=== PATIENT | female | born 1970 | race Caucasian/White ===

== ENCOUNTER 2019-09-02 18:33 | Emergency (ER) | payer OTHER ==
[2019-09-02] MEDS ORDERED: Sodium Chloride 0.9% 1,000 ML IV ONE (18:34)
[2019-09-02] MEDS ORDERED: Morphine 4 MG/ML Syringe IVPUSH ONE (18:35)
[2019-09-02] MEDS ORDERED: Ondansetron 4 MG/2 ML SDV IVPUSH ONE (18:35)
[2019-09-02 18:42] VITALS: BP 109/80
--- NOTE | 2019-09-02 18:51 | EDM.PDOC ---
ED HPI GENERAL MEDICAL PROBLEM - General Chief Complaint: Abdominal Pain Stated Complaint: ABDOMINAL PAIN Time Seen by Provider: 09/02/19 18:37 Source of Information: Reports: Patient History Limitations: Reports: No Limitations - History of Present Illness INITIAL COMMENTS - FREE TEXT/NARRATIVE: HISTORY AND PHYSICAL: History of present illness: Patient is a 49-year-old female who presents to the emergency room today with complaints of generalized abdominal pain, worse in the lower abdomen over the past one hour prior to arrival. Patient reports that she has a history of bowel torsion which required surgery while she was in [place] (2012). She states that these were due to multiple adhesions but she did not have any bowel removal. The pain she is experiencing at this time is similar to that instance. Patient denies any fever, chills, headache, change in vision, syncope or near syncope. Denies any chest pain, back pain, shortness of breath or cough. Denies any diarrhea, constipation or dysuria. Has not noted any blood in urine or stool. Patient had been eating and drinking appropriately. Review of systems: As per history of present illness and below otherwise all systems reviewed and negative. Past medical history: As per history of present illness and as reviewed below otherwise noncontributory. Surgical history: As per history of present illness and as reviewed below otherwise noncontributory. Social history: See social history for further information Family history: As per history of present illness and as reviewed below otherwise noncontributory. Physical exam: General: Well-developed and well-nourished 49-year-old female. Alert and oriented. Nontoxic appearing and mildly in distress due to abdominal pain. HEENT: Atraumatic, normocephalic, pupils equal and reactive bilaterally, negative for conjunctival pallor or scleral icterus, mucous membranes moist, TMs normal bilaterally, throat clear, neck supple, nontender, trachea midline. No drooling or trismus noted. No meningeal signs. No hot potato voice noted. Lungs: Clear to auscultation, breath sounds equal bilaterally, chest nontender. Heart: S1S2, regular rate and rhythm without overt murmur Abdomen: Soft, nondistended, tender in all 4 quadrants moreso in the lower abdomen. Negative for masses or hepatosplenomegaly. Negative for costovertebral tenderness. Pelvis: Stable nontender. Skin: Intact, warm, dry. No lesions or rashes noted. Extremities: Atraumatic, moves all extremities per self without difficulty or deficits, negative for cords or calf pain. Neurovascular unremarkable. Neuro: Awake, alert, oriented. Cranial nerves II through XII unremarkable. Cerebellum unremarkable. Motor and sensory unremarkable throughout. Exam nonfocal. Notes: All diagnostics are unremarkable. Findings were shared with the patient. We discussed signs and symptoms that would prompt her to return to the emergency room. Encouraged her to follow up with her primary care provider. Supportive care measures were reviewed and discussed. Voices understanding and is agreeable to plan of care. Denies any further questions or concerns at this time. Diagnostics: CBC, CMP, UA, lipase, CT abdomen and pelvis Therapeutics: IV fluid, Zofran, morphine Prescription: None Impression: Abdominal Pain Plan: 1. Dooly diet; advance as tolerated. Please use Tylenol and/or Ibuprofen as needed for pain and fever management. 2. Get plenty of Rest. Encourage fluids to prevent dehydration. 3. Please follow up with your primary care provider. Return to the ED as needed as discussed. Definitive disposition and diagnosis as appropriate pending reevaluation and review of above. 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 intestinal repair Female Surgical History: Reports: Section, Hysterectomy Oncologic Surgical History: Reports: Lumpectomy Social & Family History - Family History Family Medical History: Noncontributory - Tobacco Use Smoking Status *Q: Current Every Day Smoker Years of Tobacco use: 2 Packs/Tins Daily: 0.5 - Caffeine Use Caffeine Use: Reports: Coffee - Recreational Drug Use Recreational Drug Use: No ED ROS GENERAL - Review of Systems Review Of Systems: Comprehensive ROS is negative, except as noted in HPI. ED EXAM, GI/ABD - Physical Exam Exam: See Below (See dictation) Course - Vital Signs Last Recorded V/S: Last Vital Signs Temp 97.5 F 09/02/19 18:38 Pulse 115 H 09/02/19 18:38 Resp 20 09/02/19 18:38 BP 109/80 09/02/19 18:38 Pulse Ox 97 09/02/19 18:38 - Orders/Labs/Meds Labs: Laboratory Tests 09/02/19 09/02/19 09/02/19 Range/Units 18:40 18:40 18:40 WBC 9.78 (4.0-11.0) K/uL RBC 4.25 L (4.30-5.90) M/uL Hgb 14.3 (12.0-16.0) g/dL Hct 41.1 (36.0-46.0) % MCV 96.7 (80.0-98.0) fL MCH 33.6 H (27.0-32.0) pg MCHC 34.8 (31.0-37.0) g/dL RDW Std Deviation 48.8 (28.0-62.0) fl RDW Coeff of Sameer 14 (11.0-15.0) % Plt Count 328 (150-400) K/uL MPV 10.00 (7.40-12.00) fL Neut % (Auto) 63.8 (48.0-80.0) % Lymph % (Auto) 20.0 (16.0-40.0) % [place] % (Auto) 10.2 (0.0-15.0) % Eos % (Auto) 5.4 (0.0-7.0) % Baso % (Auto) 0.6 (0.0-1.5) % Neut # (Auto) 6.2 H (1.4-5.7) K/uL Lymph # (Auto) 2.0 (0.6-2.4) K/uL [place] # (Auto) 1.0 H (0.0-0.8) K/uL Eos # (Auto) 0.5 (0.0-0.7) K/uL Baso # (Auto) 0.1 (0.0-0.1) K/uL Nucleated RBC % 0.0 /100WBC Nucleated RBCs # 0 K/uL Sodium 136 (136-145) mmol/L Potassium 4.1 (3.5-5.1) mmol/L Chloride 99 (98-107) mmol/L Carbon Dioxide 27.3 (21.0-32.0) mmol/L BUN 10 (7.0-18.0) mg/dL Creatinine 1.4 H (0.6-1.0) mg/dL Est Cr Clr Drug Dosing 38.02 mL/min Estimated GFR (MDRD) 39.8 ml/min Glucose 94 (74-106) mg/dL Calcium 9.3 (8.5-10.1) mg/dL Total Bilirubin 0.2 (0.2-1.0) mg/dL AST 27 (15-37) IU/L ALT 34 (14-63) IU/L Alkaline Phosphatase 69 (46-116) U/L Total Protein 7.8 (6.4-8.2) g/dL Albumin 3.7 (3.4-5.0) g/dL Globulin 4.1 H (2.6-4.0) g/dL Albumin/Globulin Ratio 0.9 (0.9-1.6) Lipase 211 (73-393) U/L Urine Color Urine Appearance Urine pH (5.0-8.0) Ur Specific [place] (1.001-1.035) Urine Protein (NEGATIVE) mg/dL Urine Glucose (UA) (NEGATIVE) mg/dL Urine Ketones (NEGATIVE) mg/dL Urine Occult Blood (NEGATIVE) Urine Nitrite (NEGATIVE) Urine Bilirubin (NEGATIVE) Urine Urobilinogen (<2.0) EU/dL Ur Leukocyte Esterase (NEGATIVE) 09/02/19 Range/Units 19:40 WBC (4.0-11.0) K/uL RBC (4.30-5.90) M/uL Hgb (12.0-16.0) g/dL Hct (36.0-46.0) % MCV (80.0-98.0) fL MCH (27.0-32.0) pg MCHC (31.0-37.0) g/dL RDW Std Deviation (28.0-62.0) fl RDW Coeff of Sameer (11.0-15.0) % Plt Count (150-400) K/uL MPV (7.40-12.00) fL Neut % (Auto) (48.0-80.0) % Lymph % (Auto) (16.0-40.0) % [place] % (Auto) (0.0-15.0) % Eos % (Auto) (0.0-7.0) % Baso % (Auto) (0.0-1.5) % Neut # (Auto) (1.4-5.7) K/uL Lymph # (Auto) (0.6-2.4) K/uL [place] # (Auto) (0.0-0.8) K/uL Eos # (Auto) (0.0-0.7) K/uL Baso # (Auto) (0.0-0.1) K/uL Nucleated RBC % /100WBC Nucleated RBCs # K/uL Sodium (136-145) mmol/L Potassium (3.5-5.1) mmol/L Chloride (98-107) mmol/L Carbon Dioxide (21.0-32.0) mmol/L BUN (7.0-18.0) mg/dL Creatinine (0.6-1.0) mg/dL Est Cr Clr Drug Dosing mL/min Estimated GFR (MDRD) ml/min Glucose (74-106) mg/dL Calcium (8.5-10.1) mg/dL Total Bilirubin (0.2-1.0) mg/dL AST (15-37) IU/L ALT (14-63) IU/L Alkaline Phosphatase (46-116) U/L Total Protein (6.4-8.2) g/dL Albumin (3.4-5.0) g/dL Globulin (2.6-4.0) g/dL Albumin/Globulin Ratio (0.9-1.6) Lipase (73-393) U/L Urine Color YELLOW Urine Appearance CLEAR Urine pH 6.0 (5.0-8.0) Ur Specific [place] <= 1.005 (1.001-1.035) Urine Protein NEGATIVE (NEGATIVE) mg/dL Urine Glucose (UA) NEGATIVE (NEGATIVE) mg/dL Urine Ketones NEGATIVE (NEGATIVE) mg/dL Urine Occult Blood NEGATIVE (NEGATIVE) Urine Nitrite NEGATIVE (NEGATIVE) Urine Bilirubin NEGATIVE (NEGATIVE) Urine Urobilinogen 0.2 (<2.0) EU/dL Ur Leukocyte Esterase NEGATIVE (NEGATIVE) Meds: Medications Discontinued Medications Generic Name Dose Route Start Last Admin Trade Name Freq PRN Reason Stop Dose Admin Hydromorphone HCl 1 mg 09/02/19 19:17 09/02/19 19:26 Dilaudid IVPUSH 09/02/19 19:18 1 mg ONETIME ONE Administration Sodium Chloride 1,000 mls @ 999 mls/hr 09/02/19 18:34 09/02/19 18:44 Normal Saline IV 09/02/19 19:34 999 mls/hr STAT ONE Administration Morphine Sulfate 4 mg 09/02/19 18:35 09/02/19 18:45 Morphine IVPUSH 09/02/19 18:36 4 mg ONETIME ONE Administration Ondansetron HCl 4 mg 09/02/19 18:35 09/02/19 18:44 Zofran IVPUSH 09/02/19 18:36 4 mg ONETIME ONE Administration Departure - Departure Time of Disposition: 20:03 Disposition: Home, Self-Care 01 Clinical Impression: Abdominal pain - Discharge Information Instructions: Abdominal Pain, Adult, [id number] Referrals: PCP,Unknown [Primary Care Provider] - Forms: ED Department Discharge Additional Instructions: The following information is given to patients seen in the emergency department who are being discharged to home. This information is to outline your options for follow-up care. We provide all patients seen in our emergency department with a follow-up referral. The need for follow-up, as well as the timing and circumstances, are variable depending upon the specifics of your emergency department visit. If you don't have a primary care physician on staff, we will provide you with a referral. We always advise you to contact your personal physician following an emergency department visit to inform them of the circumstance of the visit and for follow-up with them and/or the need for any referrals to a consulting specialist. The emergency department will also refer you to a specialist when appropriate. This referral assures that you have the opportunity for follow-up care with a specialist. All of these measure are taken in an effort to provide you with optimal care, which includes your follow-up. Under all circumstances we always encourage you to contact your private physician who remains a resource for coordinating your care. When calling for follow-up care, please make the office aware that this follow-up is from your recent emergency room visit. If for any reason you are refused follow-up, please contact the [facility] Emergency Department at and asked to speak to the emergency department charge nurse. [facility] [address] [place] [id number] [address] 1. Dooly diet; advance as tolerated. Please use Tylenol and/or Ibuprofen as needed for pain and fever management. 2. Get plenty of Rest. Encourage fluids to prevent dehydration. 3. Please follow up with your primary care provider. Return to the ED as needed as discussed.
[2019-09-02 19:14] LABS: CARBON DIOXIDE,CO2 27.3 mmol/L (21.0-32.0); POTASSIUM,K 4.1 mmol/L (3.5-5.1)
[2019-09-02] MEDS ORDERED: HYDROmorphone 1 MG/ML Syringe IVPUSH ONE (19:17)
--- NOTE | 2019-09-02 19:56 | CT ---
INDICATION: Pain. TECHNIQUE: CT abdomen and pelvis performed without oral or IV contrast. COMPARISON: CT 06/05/2014. FINDINGS: Bilateral breast implants. Mild scoliosis. Hysterectomy. Minimal fluid and stranding about both kidneys is doing could suggest mild perinephric edema or inflammation of uncertain etiology and age. Clinical and laboratory correlation recommended. No renal or ureteral calculi. Small cyst or follicle in the right ovary. Urinary bladder is moderately distended. The distal stomach is not well-distended likely accounting for its wall being slightly prominent. Colonic diverticulosis. No evidence for diverticulitis. Appendix is not seen. Minimal scarring or edema and lateral pelvic wall bilaterally. Remainder negative. IMPRESSION: 1. No acute disease in abdomen or pelvis. 2. Nonspecific new very mild fluid and stranding about both kidneys could be related to perinephric edema or inflammation and can be correlated to clinical and laboratory evidence. 3. Hysterectomy. 4. Not mentioned above are a few air-fluid levels within the midline and left lower quadrant and pelvic small bowel loops which is very nonspecific. Other findings as above. Please note that all CT scans at this facility use dose modulation, iterative reconstruction, and/or weight-based dosing when appropriate to reduce radiation dose to as low as reasonably achievable. Dictated by Devon Arboleda MD @ Sep 02 2019 7:55PM Signed by Dr. Devon Arboleda @ Sep 02 2019 7:55PM
[2019-09-02 20:21] VITALS: PULSE 96
== END 2019-09-02 20:22 | disposition home or self-care (01) ==
LOC: MW.ED 18:33
DX: R10.30 Lower abdominal pain, unspecified (principal); F41.9 Anxiety disorder, unspecified; F03.90 Unspecified dementia, unspecified severity, without behavioral disturbance, psychotic disturbance, mood disturbance, and anxiety; F17.210 Nicotine dependence, cigarettes, uncomplicated; Z90.49 Acquired absence of other specified parts of digestive tract; Z88.5 Allergy status to narcotic agent; Z88.8 Allergy status to other drugs, medicaments and biological substances; Z79.899 Other long term (current) drug therapy
CPT/HCPCS: 36415; 74176; 80053; 81003; 83690; 85025; 96361; 96374; 96375; 99284; J1170; J2270; J2405; J7040

== ENCOUNTER 2019-09-17 10:59 | Day surgery (SDC) | payer OTHER ==
[~2019-09-17 10:59] MED LIST: Lactated Ringers 1,000 ML IV SCH; Lidocaine 2% 5 ML SDV ONE; Propofol 200 MG/20 ML SDV ONE
--- NOTE | 2019-09-17 11:52 | PCM.PREANE ---
Preanesthetic Assessment - Anesthesia/Transfusion/Family Hx Anesthesia History: Prior Anesthesia Without Reaction Family History of Anesthesia Reaction: No Transfusion History: No Prior Transfusion(s) - Review of Systems General: No Symptoms Pulmonary: No Symptoms Cardiovascular: No Symptoms Gastrointestinal: No Symptoms Neurological: No Symptoms Other: Reports: None - Physical Assessment NPO Status Date: 09/16/19 Height: 5 ft 2 in Weight: 82.554 kg ASA Class: 2 Mental Status: Alert & Oriented x3 Airway Class: Mallampati = 2 Dentition: Reports: Normal Dentition ROM/Head Extension: Full Lungs: Clear to Auscultation, Normal Respiratory Effort Cardiovascular: Regular Rate, Regular Rhythm - Allergies Allergies/Adverse Reactions: Allergies Allergy/AdvReac Type Severity Reaction Status Date / Time acetaminophen Allergy Vomiting Verified 09/13/19 12:23 [From Darvocet-N] codeine Allergy Vomiting Verified 09/13/19 12:23 propoxyphene napsylate Allergy Vomiting Verified 09/13/19 12:23 [From Darvocet-N] - Blood Blood Available: No - Anesthesia Plan Pre-Op Medication Ordered: None - Acknowledgements Anesthesia Type Planned: General Anesthesia Pt an Appropriate Candidate for the Planned Anesthesia: Yes Alternatives and Risks of Anesthesia Discussed w Pt/Guardian: Yes Pt/Guardian Understands and Agrees with Anesthesia Plan: Yes Additional Comments: PMH: htn, smoker PLAN: tiva PreAnesthesia Questionnaire - Past Health History Medical/Surgical History: Denies Medical/Surgical History HEENT History: Reports: Other (See Below) Other HEENT History: wears glasses Cardiovascular History: Reports: Hypertension Respiratory History: Reports: None Gastrointestinal History: Reports: GERD Genitourinary History: Reports: None 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: Musculoskeletal History: Reports: Fracture, Fibromyalgia Other Musculoskeletal History: hx fx bone in foot Neurological History: Reports: None Psychiatric History: Reports: Anxiety, Depression Endocrine/Metabolic History: Reports: Obesity/BMI 30+ Hematologic History: Reports: None Immunologic History: Reports: None Oncologic (Cancer) History: Reports: None Dermatologic History: Reports: None - Infectious Disease History Infectious Disease History: Reports: Chicken Pox - Past Surgical History Head Surgeries/Procedures: Reports: None HEENT Surgical History: Reports: None Cardiovascular Surgical History: Reports: None Respiratory Surgical History: Reports: None GI Surgical History: Reports: Appendectomy, Small Bowel Other GI Surgeries/Procedures: laproscopy, laparotomy with lysis of adhesions for "twisted bowel" Female Surgical History: Reports: Breast Biopsy, Breast Implant, Section, Hysterectomy Endocrine Surgical History: Reports: None Neurological Surgical History: Reports: None Musculoskeletal Surgical History: Reports: None Oncologic Surgical History: Reports: Lumpectomy Dermatological Surgical History: Reports: None - SUBSTANCE USE Smoking Status *Q: Current Every Day Smoker Tobacco Use Within Last Twelve Months: Cigarettes - HOME MEDS Home Medications: Home Meds Losartan/Hydrochlorothiazide [Losartan-HCTZ 100-25 MG] 1 tab PO DAILY 09/02/19 [ History] busPIRone HCl [Buspirone HCl] 15 mg PO DAILY 09/13/19 [History] hydrOXYzine pamoate [Hydroxyzine Pamoate] 50 mg PO ASDIRECTED PRN 09/13/19 [ History] - CURRENT (IN HOUSE) MEDS Current Meds: Current Medications Lactated Ringer's (Ringers, Lactated) 1,000 mls @ 125 mls/hr IV ASDIRECTED BELKIS Discontinued Medications Lidocaine (Xylocaine-Mpf 2%) Confirm Administered Dose 5 ml .ROUTE .STK-MED ONE Stop: 09/17/19 10:29 Propofol (Diprivan 20 Ml) Confirm Administered Dose 400 mg .ROUTE .STK-MED ONE Stop: 09/17/19 10:29
[2019-09-17] MEDS ORDERED: Lactated Ringers 1,000 ML IV SCH (13:15)
--- NOTE | 2019-09-17 13:17 | PCM.OPNOTE ---
- General Post-Op/Procedure Note Date of Surgery/Procedure: 09/17/19 Operative Procedure(s): Esophagogastroduodenoscopy with gastric and esophageal biopsies Pre Op Diagnosis: Epigastric pain Post-Op Diagnosis: Mild gastritis and esophagitis Anesthesia Technique: MAC (ASA II) Primary Surgeon: Renny Tejeda Condition: Good Free Text/Narrative:: DICTATION 314042 CPT CODE 33586
--- NOTE | 2019-09-17 13:30 | PCM.POSTAN ---
POST ANESTHESIA ASSESSMENT - MENTAL STATUS Mental Status: Alert, Oriented - VITAL SIGNS Vital Signs: Last Vital Signs Temp 36.2 C 09/17/19 11:57 Pulse 77 09/17/19 13:18 Resp 24 H 09/17/19 13:18 BP 126/79 09/17/19 13:18 Pulse Ox 94 L 09/17/19 13:18 - RESPIRATORY Respiratory Status: Respiratory Rate WNL, Airway Patent, O2 Saturation Stable - CARDIOVASCULAR CV Status: Pulse Rate WNL, Blood Pressure Stable - GASTROINTESTINAL GI Status: No Symptoms - PAIN Pain Score: 0 - POST OP HYDRATION Hydration Status: Adequate & Stable
[2019-09-17 13:43] VITALS: BP 134/71; PULSE 62
--- NOTE | 2019-09-17 13:47 | PCM48HPAN ---
Post Anesthesia Note - EVALUATION WITHIN 48HRS OF ANESTHETIC Vital Signs in Normal Range: Yes Patient Participated in Evaluation: Yes Respiratory Function Stable: Yes Airway Patent: Yes Cardiovascular Function Stable: Yes Hydration Status Stable: Yes Pain Control Satisfactory: Yes Nausea and Vomiting Control Satisfactory: Yes Mental Status Recovered: Yes Vital Signs: Last Vital Signs Temp 36.2 C 09/17/19 11:57 Pulse 62 09/17/19 13:30 Resp 14 09/17/19 13:30 BP 134/71 09/17/19 13:30 Pulse Ox 98 09/17/19 13:30
--- NOTE | 2019-09-17 15:13 | OR ---
SURGEON: Renny Tejeda M.D. DATE OF PROCEDURE: 09/17/2019 PROCEDURE PERFORMED: Esophagogastroduodenoscopy with gastric and esophageal biopsies. PRIMARY SURGEON: Renny Tejeda M.D. ANESTHESIA: MAC. ASA CLASSIFICATION: II. PREOPERATIVE DIAGNOSIS: Persistent epigastric pain. POSTOPERATIVE DIAGNOSES: 1. Mild chronic gastritis. 2. Mild esophagitis. DESCRIPTION OF PROCEDURE: The patient was taken to the endoscopy room and positioned on the endoscopy table in the supine position. Time-out was called for appropriate identification of the patient and procedure. Monitored anesthesia care was provided. A bite block was placed between the patient's teeth. The gastroscope was inserted through the bite block into the oropharynx and advanced without difficulty through the esophagus and stomach into the duodenum, where examination was carried out in a retrograde fashion. Duodenum shows no acute inflammatory changes or ulcerations. The stomach does show [id number] gastritis. No acute erosions or ulcerations were noted. The gastroscope was retroflexed to visualize the proximal stomach. No polyps or ulcers were noted. The gastroscope was again straightened and biopsies of the antrum were obtained to look for the presence of Helicobacter pylori. The gastroscope was then slowly withdrawn carefully visualizing the greater and lesser curvatures. Again, no ulcerations were noted, and no gastric polyps were identified. The GE junction was well defined and showed no acute inflammatory changes or ulcerations. She did have some mild erosions in the esophagus, and separate biopsies of the distal esophagus were obtained. The mid and proximal esophagus demonstrated no acute lesions. The vocal cords were briefly visualized and noted to move symmetrically. The gastroscope was then removed with the patient having tolerated the procedure well. She was taken to recovery room in stable condition. TENNILLE / CAMPOS /[id number]
== END 2019-09-17 13:57 | disposition home or self-care (01) ==
LOC: MW.SDS 10:59
PROVIDERS: ATTEND Surgery
DX: K29.50 Unspecified chronic gastritis without bleeding (principal); K20.9 Esophagitis, unspecified; F17.200 Nicotine dependence, unspecified, uncomplicated; F41.9 Anxiety disorder, unspecified; Z88.5 Allergy status to narcotic agent; Z79.899 Other long term (current) drug therapy
CPT/HCPCS: 43239; J2001; J2704; J7120

== ENCOUNTER 2020-11-23 20:49 | Observation (INO) | payer OTHER ==
[2020-11-23] MEDS ORDERED: Sodium Chloride 0.9% 10 ML Syringe FLUSH PRN (21:12)
[2020-11-23] MEDS ORDERED: Sodium Chloride 0.9% 2.5 ML Syringe FLUSH PRN (21:12)
[2020-11-23] MEDS ORDERED: Sodium Chloride 0.9% 1,000 ML IV ONE (21:22)
[2020-11-23] MEDS ORDERED: Aspirin 81 MG Tab.Chew PO ONE (21:22)
[2020-11-23 21:35] LABS: BLOOD UREA NITROGEN,BUN 22 mg/dL (7.0-18.0); CARBON DIOXIDE,CO2 26.3 mmol/L (21.0-32.0); CHLORIDE,CL 95 mmol/L (98-107); GLUCOSE RANDOM 95 mg/dL (74-106); LIPASE 95 U/L (73-393); POTASSIUM,K 3.3 mmol/L (3.5-5.1); SODIUM,NA 135 mmol/L (136-145)
[2020-11-23] MEDS ORDERED: Sodium Chloride 0.9% 1,000 ML IV SCH (21:45)
--- NOTE | 2020-11-23 21:56 | CR ---
HISTORY: Chest pain COMPARISON: 04/29/2016 FINDINGS: A portable erect AP view of the chest was obtained at 21 20 hours. The lungs remain clear. No focal or diffuse infiltrates are present. There is no sign of pneumothorax or rib abnormality to correlate with history of chest pain. The heart remains normal in size. The mediastinum is normal in appearance. The osseous structures are normal in appearance for the patient`s age. IMPRESSION: Normal portable chest single view. Dictated by Niels Kitchen MD @ Nov 23 2020 9:55PM Signed by Dr. Niels Kitchen @ Nov 23 2020 9:56PM
--- NOTE | 2020-11-23 21:59 | EDM.PDOC ---
<Scooter Christensen - Last Filed: 11/23/20 23:34> ED HPI GENERAL MEDICAL PROBLEM - General Chief Complaint: Chest Pain Stated Complaint: CHEST PAIN / SOB Time Seen by Provider: 11/23/20 21:05 - History of Present Illness INITIAL COMMENTS - FREE TEXT/NARRATIVE: Care signed out to me at 10 PM. Chart reviewed. Patient's EKG is unremarkable without any evidence of ST elevation ME. Patient presents ER today complaining of chest pain. Patient's labs are all within normal limits with a normal D- dimer, troponin, chest x-ray. Given patient's symptoms patient will be admitted to the hospital for further cardiac evaluation. Case has been discussed with Dr. Camarillo who agrees to assist us with observation level of care of the patient. - Related Data Allergies Allergy/AdvReac Type Severity Reaction Status Date / Time acetaminophen Allergy Rash Verified 11/24/20 01:15 [From Darvocet-N] propoxyphene Allergy Rash Verified 11/24/20 01:15 [From Darvocet-N] propoxyphene napsylate Allergy Vomiting Verified 11/24/20 00:52 [From Darvocet-N] Home Meds: Home Meds Losartan/Hydrochlorothiazide [Losartan-HCTZ 100-25 MG] 1 tab PO DAILY 09/02/19 [History] hydrOXYzine pamoate [Hydroxyzine Pamoate] 50 mg PO Q6H PRN 09/13/19 [History] Topiramate 25 mg PO DAILY 11/23/20 [History] amLODIPine [Norvasc] 2.5 mg PO DAILY 11/23/20 [History] Zolpidem [Ambien] 5 mg PO BEDTIME PRN 11/24/20 [History] #1 Interpretation EKG Interpretation Comments: EKG: As interpreted by ER physician: Amparo: Nonspecific ST-T wave abnormalities Normal axis No evidence of ST elevation ME Normal sinus rhythm heart rate of 99 Departure - Departure Time of Disposition: 23:35 Disposition: Refer to Observation Condition: Good Clinical Impression: Acute coronary syndrome - Discharge Information <Christiana Montoya - Last Filed: 11/27/20 10:23> ED HPI GENERAL MEDICAL PROBLEM - General Source of Information: Reports: Patient History Limitations: Reports: No Limitations - History of Present Illness INITIAL COMMENTS - FREE TEXT/NARRATIVE: HISTORY AND PHYSICAL: History of present illness: Patient is a 50 year old female who presents to the ED today with chest pain, shortness of breath, and fast heart rate that is worse with standing up. Patient states the symptoms started this morning but has worsened over the past 3 hours. Patient states that she has had similar episodes of this prior back when she had a prior Holter monitor placed 6 months ago by her primary care physician, Dr. Aguirre. Patient states that at that time, she was diagnosed with intermittent SVT but states that she has not had issues with it since so has not started any medications or therapeutics for this. Patient states she has not taken anything today for her symptoms. Patient states she has a history of hypertension that she has not started any new medications for and has been compliant with her medications. Patient denies fever, chills, or cough. Denies headache, neck stiff ness, change in vision, syncope, or near syncope. Denies nausea, vomiting, abdominal pain, diarrhea, constipation, or dysuria. Has not noted any blood in urine or stool. Patient has been eating and drinking appropriately. Review of systems: As per history of present illness and below otherwise all systems reviewed and negative. Past medical history: As per history of present illness and as reviewed below otherwise nonc ontributory. Surgical history: As per history of present illness and as reviewed below otherwise noncontributory. Social history: See social history for further information Family history: As per history of present illness and as reviewed below otherwise noncontributory. Physical exam: General: Patient is alert, oriented, and in no acute distress. Patient sitting comfortably on exam table. Vitals stable and reviewed by me. HEENT: Atraumatic, normocephalic, pupils equal and reactive bilaterally, negative for conjunctival pallor or scleral icterus, mucous membranes moist, TMs normal bilaterally, throat clear, neck supple, nontender, trachea midline. No drooling or trismus noted. No meningeal signs. No hot potato voice noted. Lungs: Clear to auscultation, breath sounds equal bilaterally, chest nontender. Heart: S1S2, regular rate and rhythm without overt murmur Abdomen: Soft, nondistended, nontender. Negative for masses or hepatosplenomegaly. Negative for costovertebral tenderness. Pelvis: Stable nontender. Genitourinary: Deferred. Rectal: Deferred. Skin: Intact, warm, dry. No lesions or rashes noted. Extremities: Atraumatic, negative for cords or calf pain. Neurovascular unre markable. Neuro: Awake, alert, oriented. Cranial nerves II through XII unremarkable. Cerebellum unremarkable. Motor and sensory unremarkable throughout. Exam nonfocal. Notes: During orthostatic vital signs, patient is positive for orthostasis. She does have significant symptoms that occur with standing and improves when laying down. Dr. Christensen has assumed care of patient and will follow remaining diagnostics and disposition. Diagnostics: EKG, CBC, CMP, UA, CXR, Trop, Ddimer Therapeutics: NS, Zofran, ASA Prescription: Impression: Chest pain Dyspnea Orthostasis Plan: Definitive disposition and diagnosis as appropriate pending reevaluation and review of above. 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: Musculoskeletal History: Reports: Fracture, Fibromyalgia Other Musculoskeletal History: hx fx bone in foot Neurological History: Reports: None Psychiatric History: Reports: Anxiety, Depression Endocrine/Metabolic History: Reports: Obesity/BMI 30+ Hematologic History: Reports: None Immunologic History: Reports: None Oncologic (Cancer) History: Reports: None Dermatologic History: Reports: None - Infectious Disease History Infectious Disease History: Reports: Chicken Pox - Past Surgical History Head Surgeries/Procedures: Reports: None HEENT Surgical History: Reports: None Cardiovascular Surgical History: Reports: None Respiratory Surgical History: Reports: None GI Surgical History: Reports: Appendectomy, Small Bowel Other GI Surgeries/Procedures: laproscopy, laparotomy with lysis of adhesions for "twisted bowel" Female Surgical History: Reports: Breast Biopsy, Breast Implant, Section, Hysterectomy Endocrine Surgical History: Reports: None Neurological Surgical History: Reports: None Musculoskeletal Surgical History: Reports: None Oncologic Surgical History: Reports: Lumpectomy Dermatological Surgical History: Reports: None Social & Family History - Family History Family Medical History: No Pertinent Family History - Tobacco Use Tobacco Use Status *Q: Current Every Day Tobacco User Years of Tobacco use: 3 Packs/Tins Daily: 1 - Caffeine Use Caffeine Use: Reports: Coffee - Recreational Drug Use Recreational Drug Use: No ED ROS GENERAL - Review of Systems Review Of Systems: Comprehensive ROS is negative, except as noted in HPI. ED EXAM, GENERAL - Physical Exam Exam: See Below (see dictation) Course - Vital Signs Last Recorded V/S: Last Vital Signs Temp 97.4 F 11/24/20 09:15 Pulse 80 11/24/20 09:15 Resp 14 11/24/20 09:15 BP 119/66 11/24/20 09:16 Pulse Ox 96 11/24/20 09:15 Orthostatic Blood Pressure [ 126/90 Standing] Orthostatic Blood Pressure [ 140/91 Sitting] Orthostatic Blood Pressure [ 160/85 Supine] - Orders/Labs/Meds Labs: Laboratory Tests 11/23/20 11/23/20 11/23/20 Range/Units 21:00 21:00 21:00 WBC 8.12 (4.0-11.0) K/uL RBC 4.69 (4.30-5.90) M/uL Hgb 16.0 (12.0-16.0) g/dL Hct 46.4 H (36.0-46.0) % MCV 98.9 H (80.0-98.0) fL MCH 34.1 H (27.0-32.0) pg MCHC 34.5 (31.0-37.0) g/dL RDW Std Deviation 49.9 (28.0-62.0) fl RDW Coeff of Sameer 14 (11.0-15.0) % Plt Count 298 (150-400) K/uL MPV 9.90 (7.40-12.00) fL Neut % (Auto) 66.5 (48.0-80.0) % Lymph % (Auto) 17.6 (16.0-40.0) % Terry % (Auto) 13.4 (0.0-15.0) % Eos % (Auto) 2.0 (0.0-7.0) % Baso % (Auto) 0.5 (0.0-1.5) % Neut # (Auto) 5.4 (1.4-5.7) K/uL Lymph # (Auto) 1.4 (0.6-2.4) K/uL Terry # (Auto) 1.1 H (0.0-0.8) K/uL Eos # (Auto) 0.2 (0.0-0.7) K/uL Baso # (Auto) 0.0 (0.0-0.1) K/uL Nucleated RBC % 0.0 /100WBC Nucleated RBCs # 0 K/uL D-Dimer, Quantitative < 0.19 (0.0-0.50) mg/L FEU Sodium 135 L (136-145) mmol/L Potassium 3.3 L (3.5-5.1) mmol/L Chloride 95 L (98-107) mmol/L Carbon Dioxide 26.3 (21.0-32.0) mmol/L BUN 22 H (7.0-18.0) mg/dL Creatinine 1.2 H (0.6-1.0) mg/dL Est Cr Clr Drug Dosing 43.87 mL/min Estimated GFR (MDRD) 47.4 ml/min Glucose 95 (74-106) mg/dL Calcium 10.4 H (8.5-10.1) mg/dL Total Bilirubin 0.5 (0.2-1.0) mg/dL AST 41 H (15-37) IU/L ALT 66 H (14-63) IU/L Alkaline Phosphatase 88 (46-116) U/L Troponin I < 0.050 (0.000-0.056) ng/mL Total Protein 9.1 H (6.4-8.2) g/dL Albumin 4.4 (3.4-5.0) g/dL Globulin 4.7 H (2.6-4.0) g/dL Albumin/Globulin Ratio 0.9 (0.9-1.6) Lipase 95 (73-393) U/L Urine Color Urine Appearance Urine pH (5.0-8.0) Ur Specific [place] (1.001-1.035) Urine Protein (NEGATIVE) mg/dL Urine Glucose (UA) (NEGATIVE) mg/dL Urine Ketones (NEGATIVE) mg/dL Urine Occult Blood (NEGATIVE) Urine Nitrite (NEGATIVE) Urine Bilirubin (NEGATIVE) Urine Ictotest Urine Urobilinogen (<2.0) EU/dL Ur Leukocyte Esterase (NEGATIVE) U Hyaline Cast (Auto) (0-2/LPF) Urine RBC (0-2/HPF) Urine WBC (0-5/HPF) Ur Epithelial Cells (NONE-FEW) Urine Bacteria (NEGATIVE) Urine Mucus (NONE-MOD) Influenza Type A RNA (NEGATIVE) Influenza Type B RNA (NEGATIVE) SARS-CoV-2 RNA (PROMISE) (NEGATIVE) 11/23/20 11/23/20 Range/Units 22:10 23:03 WBC (4.0-11.0) K/uL RBC (4.30-5.90) M/uL Hgb (12.0-16.0) g/dL Hct (36.0-46.0) % MCV (80.0-98.0) fL MCH (27.0-32.0) pg MCHC (31.0-37.0) g/dL RDW Std Deviation (28.0-62.0) fl RDW Coeff of Sameer (11.0-15.0) % Plt Count (150-400) K/uL MPV (7.40-12.00) fL Neut % (Auto) (48.0-80.0) % Lymph % (Auto) (16.0-40.0) % Terry % (Auto) (0.0-15.0) % Eos % (Auto) (0.0-7.0) % Baso % (Auto) (0.0-1.5) % Neut # (Auto) (1.4-5.7) K/uL Lymph # (Auto) (0.6-2.4) K/uL Terry # (Auto) (0.0-0.8) K/uL Eos # (Auto) (0.0-0.7) K/uL Baso # (Auto) (0.0-0.1) K/uL Nucleated RBC % /100WBC Nucleated RBCs # K/uL D-Dimer, Quantitative (0.0-0.50) mg/L FEU Sodium (136-145) mmol/L Potassium (3.5-5.1) mmol/L Chloride (98-107) mmol/L Carbon Dioxide (21.0-32.0) mmol/L BUN (7.0-18.0) mg/dL Creatinine (0.6-1.0) mg/dL Est Cr Clr Drug Dosing mL/min Estimated GFR (MDRD) ml/min Glucose (74-106) mg/dL Calcium (8.5-10.1) mg/dL Total Bilirubin (0.2-1.0) mg/dL AST (15-37) IU/L ALT (14-63) IU/L Alkaline Phosphatase (46-116) U/L Troponin I (0.000-0.056) ng/mL Total Protein (6.4-8.2) g/dL Albumin (3.4-5.0) g/dL Globulin (2.6-4.0) g/dL Albumin/Globulin Ratio (0.9-1.6) Lipase (73-393) U/L Urine Color YELLOW Urine Appearance SLT CLOUDY Urine pH 5.5 (5.0-8.0) Ur Specific [place] >= 1.030 (1.001-1.035) Urine Protein NEGATIVE (NEGATIVE) mg/dL Urine Glucose (UA) NEGATIVE (NEGATIVE) mg/dL Urine Ketones 15 H (NEGATIVE) mg/dL Urine Occult Blood TRACE-INTACT H (NEGATIVE) Urine Nitrite NEGATIVE (NEGATIVE) Urine Bilirubin SMALL H (NEGATIVE) Urine Ictotest NEGATIVE Urine Urobilinogen 0.2 (<2.0) EU/dL Ur Leukocyte Esterase NEGATIVE (NEGATIVE) U Hyaline Cast (Auto) 1-3 (0-2/LPF) Urine RBC 0-2 (0-2/HPF) Urine WBC 2-4 (0-5/HPF) Ur Epithelial Cells MODERATE (NONE-FEW) Urine Bacteria 1+ H (NEGATIVE) Urine Mucus HEAVY (NONE-MOD) Influenza Type A RNA NEGATIVE (NEGATIVE) Influenza Type B RNA NEGATIVE (NEGATIVE) SARS-CoV-2 RNA (PROMISE) NEGATIVE (NEGATIVE) Meds: Medications Discontinued Medications Generic Name Dose Route Start Last Admin Trade Name Freq PRN Reason Stop Dose Admin Amlodipine Besylate 2.5 mg 11/24/20 09:00 11/24/20 09:16 Norvasc PO 2.5 mg DAILY BELKIS Administration Aspirin 324 mg 11/23/20 21:22 11/23/20 21:27 Aspirin PO 11/23/20 21:23 324 mg ONETIME ONE Administration HCTZ/Losartan Potassium 2 tab 11/24/20 09:00 11/24/20 09:18 Hyzaar 50-12.5 Mg PO 2 tab DAILY BELKIS Administration Hydroxyzine Pamoate 50 mg 11/24/20 07:15 Vistaril PO Q6H PRN Anxiety Sodium Chloride 1,000 mls @ 999 mls/hr 11/23/20 21:22 11/23/20 21:27 Normal Saline IV 11/23/20 22:22 999 mls/hr STAT ONE Administration Sodium Chloride 1,000 mls @ 125 mls/hr 11/23/20 21:45 11/24/20 01:27 Normal Saline IV 125 mls/hr STAT BELKIS Administration Ondansetron HCl 4 mg 11/23/20 22:02 11/23/20 22:18 Zofran IVPUSH 11/23/20 22:03 4 mg ONETIME ONE Administration Ondansetron HCl 4 mg 11/24/20 01:58 Zofran IVPUSH Q4H PRN Nausea/Vomiting Potassium Chloride 40 meq 11/24/20 01:59 11/24/20 03:07 Klor-Con M20 PO 11/24/20 02:00 40 meq ONETIME ONE Administration Sodium Chloride 2.5 ml 11/23/20 21:12 11/23/20 21:27 Saline Flush FLUSH 2.5 ml ASDIRECTED PRN Administration Keep Vein Open Sodium Chloride 10 ml 11/23/20 21:12 11/23/20 21:28 Saline Flush FLUSH 10 ml ASDIRECTED PRN Administration Keep Vein Open Topiramate 25 mg 11/24/20 09:00 11/24/20 09:17 Topamax PO 25 mg DAILY BELKIS Administration Sepsis Event Note (ED) - Evaluation Sepsis Screening Result: No Definite Risk
[2020-11-23] MEDS ORDERED: Ondansetron 4 MG/2 ML SDV IVPUSH ONE (22:02)
[2020-11-24] LABS: CORONAVIRUS COVID-19 NAA NEGATIVE (NEGATIVE); INFLUENZA A NAA NEGATIVE (NEGATIVE); INFLUENZA B NAA NEGATIVE (NEGATIVE)
[2020-11-24] MEDS ORDERED: Ondansetron 4 MG/2 ML SDV IVPUSH PRN (01:58)
[2020-11-24] MEDS ORDERED: Potassium Chloride 20 MEQ Tab.ER PO ONE (01:59)
[2020-11-24] MEDS ORDERED: hydrOXYzine Pamoate 25 MG Cap PO PRN (07:15)
--- NOTE | 2020-11-24 08:24 | PCM.HP.2 ---
H&P History of Present Illness - General Date of Service: 11/24/20 Admit Problem/Dx: Admission Diagnosis/Problem Admission Diagnosis/Problem Acute coronary syndrome Source of Information: Patient History Limitations: Reports: No Limitations - History of Present Illness Initial Comments - Free Text/Narative: 50-year-old female presents complaining of chest pain. She has a PMH of intermittent SVT and HTN. Patient reports yesterday morning she started feeling chest pain, located in central chest, non-radiating, aggravated by movement and alleviated by rest. The pain seemed to occur when she stood up and started moving. She felt like her was being "squeezed." She has had similar pain before and the pain will last for a few hours. She had associated sweats, nausea and vo mited once yesterday. She reports having a holter monitor study done approximately 6 months ago and was found to have intermittent SVT. No medications were started as it did not occur frequently. Patient smokes 1/2 ppd, drink alcohol socially and denies any illicit drug use. She has not had any feve rs, chills, sore throat, cough, abdominal pain, diarrhea, blood in stool, blood in urine, numbness or tingling in extremities. In the ER, patient was orthostatic positive and EKG showed NSR with no acute ischemic changes. Potassium level 3.3, creatinine 1.2, troponin negative, D- dimer negative. CXR was unremarkable. Patient was given 1 L NS bolus, zofran, aspirin 324 mg and admitted for further evaluation and treatment. chest Pain Score (Numeric/FACES): 0 - Related Data Allergies/Adverse Reactions: Allergies Allergy/AdvReac Type Severity Reaction Status Date / Time acetaminophen Allergy Rash Verified 11/24/20 01:15 [From Darvocet-N] propoxyphene Allergy Rash Verified 11/24/20 01:15 [From Darvocet-N] propoxyphene napsylate Allergy Vomiting Verified 11/24/20 00:52 [From Darvocet-N] Home Medications: Home Meds Losartan/Hydrochlorothiazide [Losartan-HCTZ 100-25 MG] 1 tab PO DAILY 09/02/19 [History] hydrOXYzine pamoate [Hydroxyzine Pamoate] 50 mg PO Q6H PRN 09/13/19 [History] Topiramate 25 mg PO DAILY 11/23/20 [History] amLODIPine [Norvasc] 2.5 mg PO DAILY 11/23/20 [History] Zolpidem [Ambien] 5 mg PO BEDTIME PRN 11/24/20 [History] Past Medical History - Past Health History Medical/Surgical History: Denies Medical/Surgical History HEENT History: Reports: Other (See Below) Other HEENT History: Wears glasses Cardiovascular History: Reports: Hypertension Respiratory History: Reports: None Gastrointestinal History: Reports: Bowel Obstruction, GERD Genitourinary History: Reports: None 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, Musculoskeletal History: Reports: Fracture, Fibromyalgia Other Musculoskeletal History: Hx fx bone in foot Neurological History: Reports: None Psychiatric History: Reports: Anxiety, Depression Endocrine/Metabolic History: Reports: Obesity/BMI 30+ Hematologic History: Reports: None Immunologic History: Reports: None Oncologic (Cancer) History: Reports: None Dermatologic History: Reports: None - Infectious Disease History Infectious Disease History: Reports: Chicken Pox - Past Surgical History Head Surgeries/Procedures: Reports: None HEENT Surgical History: Reports: None Cardiovascular Surgical History: Reports: None Respiratory Surgical History: Reports: None GI Surgical History: Reports: Appendectomy, Small Bowel Other GI Surgeries/Procedures: laproscopy, laparotomy with lysis of adhesions for "twisted bowel" Female Surgical History: Reports: Breast Biopsy, Breast Implant, Section, Hysterectomy Endocrine Surgical History: Reports: None Neurological Surgical History: Reports: None Musculoskeletal Surgical History: Reports: None Oncologic Surgical History: Reports: Lumpectomy Dermatological Surgical History: Reports: None Social & Family History - Family History Family Medical History: No Pertinent Family History - Tobacco Use Tobacco Use Status *Q: Current Every Day Tobacco User Years of Tobacco use: 3 Packs/Tins Daily: 0.5 Used Tobacco, but Quit: No Second Hand Smoke Exposure: Yes - Caffeine Use Caffeine Use: Reports: Tea - Alcohol Use Days Per Week of Alcohol Use: 2 Number of Drinks Per Day: 4 Total Drinks Per Week: 8 Date of Last Drink: 11/22/20 - Recreational Drug Use Recreational Drug Use: No H&P Review of Systems - Review of Systems: Review Of Systems: Comprehensive ROS is negative, except as noted in HPI. Exam - Exam Exam: See Below - Vital Signs Vital Signs: Last Vital Signs Temp 36.4 C 11/24/20 04:00 Pulse 81 11/24/20 04:00 Resp 18 11/24/20 04:00 BP 124/69 11/24/20 04:00 Pulse Ox 99 11/24/20 04:00 Orthostatic Blood Pressure [ 126/90 Standing] Orthostatic Blood Pressure [ 140/91 Sitting] Orthostatic Blood Pressure [ 160/85 Supine] Weight: 82.554 kg - Exam General: Alert, Oriented, Cooperative, Other (NAD) HEENT: Conjunctiva Clear, EOMI, Hearing Intact, Pupils Equal, Pupils Reactive Neck: Supple, Trachea Midline Lungs: Clear to Auscultation, Normal Respiratory Effort Cardiovascular: Regular Rate, Regular Rhythm GI/Abdominal Exam: Normal Bowel Sounds, Soft, Non-Tender, No Distention Extremities: Normal Inspection, No Pedal Edema Peripheral Pulses: 2+: Radial (L), Radial (R) Skin: Warm, Dry, Intact Neurological: Cranial Nerves Intact, Strength Equal Bilateral, Normal Speech, Normal Tone Neuro Extensive - Mental Status: Alert, Oriented x3, Normal Mood/Affect Psychiatric: Alert, Normal Affect, Normal Mood - Patient Data Lab Results Last 24 hrs: Laboratory Results - last 24 hr 11/23/20 11/23/20 11/23/20 Range/Units 21:00 21:00 21:00 WBC 8.12 (4.0-11.0) K/uL RBC 4.69 (4.30-5.90) M/uL Hgb 16.0 (12.0-16.0) g/dL Hct 46.4 H (36.0-46.0) % MCV 98.9 H (80.0-98.0) fL MCH 34.1 H (27.0-32.0) pg MCHC 34.5 (31.0-37.0) g/dL RDW Std Deviation 49.9 (28.0-62.0) fl RDW Coeff of Sameer 14 (11.0-15.0) % Plt Count 298 (150-400) K/uL MPV 9.90 (7.40-12.00) fL Neut % (Auto) 66.5 (48.0-80.0) % Lymph % (Auto) 17.6 (16.0-40.0) % [place] % (Auto) 13.4 (0.0-15.0) % Eos % (Auto) 2.0 (0.0-7.0) % Baso % (Auto) 0.5 (0.0-1.5) % Neut # (Auto) 5.4 (1.4-5.7) K/uL Lymph # (Auto) 1.4 (0.6-2.4) K/uL [place] # (Auto) 1.1 H (0.0-0.8) K/uL Eos # (Auto) 0.2 (0.0-0.7) K/uL Baso # (Auto) 0.0 (0.0-0.1) K/uL Nucleated RBC % 0.0 /100WBC Nucleated RBCs # 0 K/uL D-Dimer, Quantitative < 0.19 (0.0-0.50) mg/L FEU Sodium 135 L (136-145) mmol/L Potassium 3.3 L (3.5-5.1) mmol/L Chloride 95 L (98-107) mmol/L Carbon Dioxide 26.3 (21.0-32.0) mmol/L BUN 22 H (7.0-18.0) mg/dL Creatinine 1.2 H (0.6-1.0) mg/dL Est Cr Clr Drug Dosing 43.87 mL/min Estimated GFR (MDRD) 47.4 ml/min Glucose 95 (74-106) mg/dL Calcium 10.4 H (8.5-10.1) mg/dL Total Bilirubin 0.5 (0.2-1.0) mg/dL AST 41 H (15-37) IU/L ALT 66 H (14-63) IU/L Alkaline Phosphatase 88 (46-116) U/L Troponin I < 0.050 (0.000-0.056) ng/mL Total Protein 9.1 H (6.4-8.2) g/dL Albumin 4.4 (3.4-5.0) g/dL Globulin 4.7 H (2.6-4.0) g/dL Albumin/Globulin Ratio 0.9 (0.9-1.6) Lipase 95 (73-393) U/L Urine Color Urine Appearance Urine pH (5.0-8.0) Ur Specific [place] (1.001-1.035) Urine Protein (NEGATIVE) mg/dL Urine Glucose (UA) (NEGATIVE) mg/dL Urine Ketones (NEGATIVE) mg/dL Urine Occult Blood (NEGATIVE) Urine Nitrite (NEGATIVE) Urine Bilirubin (NEGATIVE) Urine Ictotest Urine Urobilinogen (<2.0) EU/dL Ur Leukocyte Esterase (NEGATIVE) U Hyaline Cast (Auto) (0-2/LPF) Urine RBC (0-2/HPF) Urine WBC (0-5/HPF) Ur Epithelial Cells (NONE-FEW) Urine Bacteria (NEGATIVE) Urine Mucus (NONE-MOD) Influenza Type A RNA (NEGATIVE) Influenza Type B RNA (NEGATIVE) SARS-CoV-2 RNA (PROMISE) (NEGATIVE) 11/23/20 11/23/20 11/24/20 Range/Units 22:10 23:03 02:58 WBC (4.0-11.0) K/uL RBC (4.30-5.90) M/uL Hgb (12.0-16.0) g/dL Hct (36.0-46.0) % MCV (80.0-98.0) fL MCH (27.0-32.0) pg MCHC (31.0-37.0) g/dL RDW Std Deviation (28.0-62.0) fl RDW Coeff of Sameer (11.0-15.0) % Plt Count (150-400) K/uL MPV (7.40-12.00) fL Neut % (Auto) (48.0-80.0) % Lymph % (Auto) (16.0-40.0) % [place] % (Auto) (0.0-15.0) % Eos % (Auto) (0.0-7.0) % Baso % (Auto) (0.0-1.5) % Neut # (Auto) (1.4-5.7) K/uL Lymph # (Auto) (0.6-2.4) K/uL [place] # (Auto) (0.0-0.8) K/uL Eos # (Auto) (0.0-0.7) K/uL Baso # (Auto) (0.0-0.1) K/uL Nucleated RBC % /100WBC Nucleated RBCs # K/uL D-Dimer, Quantitative (0.0-0.50) mg/L FEU Sodium (136-145) mmol/L Potassium (3.5-5.1) mmol/L Chloride (98-107) mmol/L Carbon Dioxide (21.0-32.0) mmol/L BUN (7.0-18.0) mg/dL Creatinine (0.6-1.0) mg/dL Est Cr Clr Drug Dosing mL/min Estimated GFR (MDRD) ml/min Glucose (74-106) mg/dL Calcium (8.5-10.1) mg/dL Total Bilirubin (0.2-1.0) mg/dL AST (15-37) IU/L ALT (14-63) IU/L Alkaline Phosphatase (46-116) U/L Troponin I < 0.050 (0.000-0.056) ng/mL Total Protein (6.4-8.2) g/dL Albumin (3.4-5.0) g/dL Globulin (2.6-4.0) g/dL Albumin/Globulin Ratio (0.9-1.6) Lipase (73-393) U/L Urine Color YELLOW Urine Appearance SLT CLOUDY Urine pH 5.5 (5.0-8.0) Ur Specific [place] >= 1.030 (1.001-1.035) Urine Protein NEGATIVE (NEGATIVE) mg/dL Urine Glucose (UA) NEGATIVE (NEGATIVE) mg/dL Urine Ketones 15 H (NEGATIVE) mg/dL Urine Occult Blood TRACE-INTACT H (NEGATIVE) Urine Nitrite NEGATIVE (NEGATIVE) Urine Bilirubin SMALL H (NEGATIVE) Urine Ictotest NEGATIVE Urine Urobilinogen 0.2 (<2.0) EU/dL Ur Leukocyte Esterase NEGATIVE (NEGATIVE) U Hyaline Cast (Auto) 1-3 (0-2/LPF) Urine RBC 0-2 (0-2/HPF) Urine WBC 2-4 (0-5/HPF) Ur Epithelial Cells MODERATE (NONE-FEW) Urine Bacteria 1+ H (NEGATIVE) Urine Mucus HEAVY (NONE-MOD) Influenza Type A RNA NEGATIVE (NEGATIVE) Influenza Type B RNA NEGATIVE (NEGATIVE) SARS-CoV-2 RNA (PROMISE) NEGATIVE (NEGATIVE) Result Diagrams: 11/23/20 21:00 11/23/20 21:00 Sepsis Event Note - Evaluation Sepsis Screening Result: No Definite Risk - Focused Exam Vital Signs: Vital Signs Temp Pulse Resp BP BP Pulse Ox 11/24/20 04:00 36.4 C 81 18 124/69 99 11/24/20 00:49 36.3 C 72 18 119/73 100 11/23/20 23:43 95 126/78 11/23/20 23:28 96 121/85 11/23/20 23:13 102 H 127/90 11/23/20 22:43 88 134/85 11/23/20 22:13 90 124/76 11/23/20 21:50 100 125/95 H 11/23/20 20:56 36.3 C 94 20 150/97 H 97 - Problem List (1) Chest pain SNOMED Code(s): 02896947 ICD Code: R07.9 - CHEST PAIN, UNSPECIFIED Status: Acute Current Visit: Yes (2) Hypokalemia SNOMED Code(s): 67871193 ICD Code: E87.6 - HYPOKALEMIA Status: Acute Current Visit: Yes (3) CHRISTINE (acute kidney injury) SNOMED Code(s): 53616659, 77843273 ICD Code: N17.9 - ACUTE KIDNEY FAILURE, UNSPECIFIED Status: Acute Current Visit: Yes Problem List Initiated/Reviewed/Updated: Yes Orders Last 24hrs: Active Orders 24 hr Category Date Time Status Patient Status [ADT] Routine ADT 11/23/20 23:35 Active EKG Documentation Completion [RC] STAT Care 11/23/20 21:13 Active Orthostatic Vital Signs [RC] ASDIRECTED Care 11/23/20 21:22 Active Telemetry Monitoring [Cardiac Monitoring] [RC] Q8H Care 11/24/20 00:18 Active Regular Diet [DIET] Diet 11/24/20 Breakfast Active TROPONIN I [CHEM] Q6H Lab 11/24/20 09:00 Ordered Hydrochlorothiazide/Losartan [Hyzaar 50-12.5 MG] Med 11/24/20 09:00 Active 2 tab PO DAILY Ondansetron [Zofran] Med 11/24/20 01:58 Active 4 mg IVPUSH Q4H PRN Sodium Chloride 0.9% [Normal Saline] 1,000 ml Med 11/23/20 21:45 Active IV STAT Sodium Chloride 0.9% [Saline Flush] Med 11/23/20 21:12 Active 10 ml FLUSH ASDIRECTED PRN Sodium Chloride 0.9% [Saline Flush] Med 11/23/20 21:12 Active 2.5 ml FLUSH ASDIRECTED PRN Topiramate [Topamax] Med 11/24/20 09:00 Active 25 mg PO DAILY amLODIPine [Norvasc] Med 11/24/20 09:00 Active 2.5 mg PO DAILY hydrOXYzine pamoate [Vistaril] Med 11/24/20 07:15 Active 50 mg PO Q6H PRN Saline Lock Insert [OM.PC] Stat Ot 11/23/20 21:12 Ordered Medication Orders Amlodipine Besylate (Norvasc) 2.5 mg PO DAILY [facility] HCTZ/Losartan Potassium (Hyzaar 50-12.5 Mg) 2 tab PO DAILY [facility] Hydroxyzine Pamoate (Vistaril) 50 mg PO Q6H PRN PRN Reason: Anxiety Sodium Chloride (Normal Saline) 1,000 mls @ 125 mls/hr IV STAT BELKIS Last Admin: 11/24/20 01:27 Dose: 125 mls/hr Documented by: [facility] Ondansetron HCl (Zofran) 4 mg IVPUSH Q4H PRN PRN Reason: Nausea/Vomiting Sodium Chloride (Saline Flush) 2.5 ml FLUSH ASDIRECTED PRN PRN Reason: Keep Vein Open Last Admin: 11/23/20 21:27 Dose: 2.5 ml Documented by: MARILEE Sodium Chloride (Saline Flush) 10 ml FLUSH ASDIRECTED PRN PRN Reason: Keep Vein Open Last Admin: 11/23/20 21:28 Dose: 10 ml Documented by: MARILEE Topiramate (Topamax) 25 mg PO DAILY [facility] Assessment/Plan Comment:: Assessment and Plan: 1. Chest pain, ACS rule out: - Admit to med/surg. Patient on telemetry. Will trend troponins. - EKG on admission showed NSR with no acute ischemic changes. - CXR was unremarkable. 2. Hypokalemia: - Repleted with KCl 40 mEq x 1. 3. CHRISTINE: - Patient given 1 L IV NS bolus in ER. 4. DVT prophylaxis: - SCD's. Discharge Summary: Patient had no reported events on telemetry overnight and no recurrence of chest pain. Troponins were trended and negative x3. Patient remained hemodynamically stable throughout her hospital stay. She was discharged in stable condition and will be set up for EKG stress test with results sent to her PCP Dr. Peoples.
[2020-11-24] MEDS ORDERED: amLODIPine 2.5 MG Tab PO SCH (09:00)
[2020-11-24] MEDS ORDERED: Hydrochlorothiazide/Losartan 12.5-50 mg Tab PO SCH (09:00)
[2020-11-24] MEDS ORDERED: Topiramate 50 MG Tab PO SCH (09:00)
[2020-11-24 09:15] VITALS: BP 119/66; PULSE 80
== END 2020-11-24 11:40 | disposition home or self-care (01) ==
LOC: MW.ED 20:49 → MW.MS 23:35
PROVIDERS: ADMIT Internal Medicine; ATTEND Internal Medicine
DX: R07.9 Chest pain, unspecified (principal); E87.6 Hypokalemia; N17.9 Acute kidney failure, unspecified; I10 Essential (primary) hypertension; I47.1 Supraventricular tachycardia; E66.9 Obesity, unspecified; F17.210 Nicotine dependence, cigarettes, uncomplicated; Z20.822 Contact with and (suspected) exposure to COVID-19; Z90.49 Acquired absence of other specified parts of digestive tract; Z88.6 Allergy status to analgesic agent; Z88.8 Allergy status to other drugs, medicaments and biological substances; Z79.899 Other long term (current) drug therapy; Z98.890 Other specified postprocedural states; Z68.33 Body mass index [BMI] 33.0-33.9, adult
CPT/HCPCS: 0240U; 36415; 71045; 80053; 81001; 83690; 84484; 85025; 85379; 93005; 96374; 99285; A9270; G0378; J2405; J7030; 93010; 99284

== ENCOUNTER 2020-11-27 10:52 | Observation (INO) | payer OTHER ==
--- NOTE | 2020-11-27 11:19 | EDM.PDOC ---
ED HPI GENERAL MEDICAL PROBLEM - General Chief Complaint: Cardiovascular Problem Stated Complaint: HBP Time Seen by Provider: 11/27/20 10:54 Source of Information: Reports: Patient History Limitations: Reports: No Limitations - History of Present Illness INITIAL COMMENTS - FREE TEXT/NARRATIVE: Patient is a 50-year-old female who presents today for lightheadedness. Patient states whenever she stands up she gets lightheaded feels her heart rate increase in her blood pressure dropping. Patient is here few days ago for similar symptoms was made to hospital when she had troponins trended and was discharged follow-up with cardiology. Patient states this is been bothering for the past 3 to 4 days is not getting any better and she started be concerned. Patient currently denies any chest pain or any chest pain when she stands to have any episodes. Patient denies any head injuries fever chills nausea vomiting or other complaints. - Related Data Allergies Allergy/AdvReac Type Severity Reaction Status Date / Time acetaminophen Allergy Rash Verified 11/27/20 11:02 [From Darvocet-N] propoxyphene Allergy Rash Verified 11/27/20 11:02 [From Darvocet-N] propoxyphene napsylate Allergy Vomiting Verified 11/27/20 11:02 [From Darvocet-N] Home Meds: Home Meds Losartan/Hydrochlorothiazide [Losartan-HCTZ 100-25 MG] 1 tab PO DAILY 09/02/19 [History] hydrOXYzine pamoate [Hydroxyzine Pamoate] 50 mg PO Q6H PRN 09/13/19 [History] Topiramate 25 mg PO DAILY 11/23/20 [History] amLODIPine [Norvasc] 2.5 mg PO DAILY 11/23/20 [History] Zolpidem [Ambien] 5 mg PO BEDTIME PRN 11/24/20 [History] Phentermine HCl 37.5 mg PO DAILY 11/27/20 [History] Past Medical History - Past Health History Medical/Surgical History: Denies Medical/Surgical History HEENT History: Reports: Other (See Below) Other HEENT History: Wears glasses Cardiovascular History: Reports: Hypertension Respiratory History: Reports: None Gastrointestinal History: Reports: Bowel Obstruction, GERD Genitourinary History: Reports: None 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, Musculoskeletal History: Reports: Fracture, Fibromyalgia Other Musculoskeletal History: Hx fx bone in foot Neurological History: Reports: None Psychiatric History: Reports: Anxiety, Depression Endocrine/Metabolic History: Reports: Obesity/BMI 30+ Hematologic History: Reports: None Immunologic History: Reports: None Oncologic (Cancer) History: Reports: None Dermatologic History: Reports: None - Infectious Disease History Infectious Disease History: Reports: Chicken Pox - Past Surgical History Head Surgeries/Procedures: Reports: None HEENT Surgical History: Reports: None Cardiovascular Surgical History: Reports: None Respiratory Surgical History: Reports: None GI Surgical History: Reports: Appendectomy, Small Bowel Other GI Surgeries/Procedures: laproscopy, laparotomy with lysis of adhesions for "twisted bowel" Female Surgical History: Reports: Breast Biopsy, Breast Implant, Section, Hysterectomy Endocrine Surgical History: Reports: None Neurological Surgical History: Reports: None Musculoskeletal Surgical History: Reports: None Oncologic Surgical History: Reports: Lumpectomy Dermatological Surgical History: Reports: None Social & Family History - Family History Family Medical History: No Pertinent Family History - Tobacco Use Tobacco Use Status *Q: Never Tobacco User - Caffeine Use Caffeine Use: Reports: Tea - Recreational Drug Use Recreational Drug Use: No ED ROS GENERAL - Review of Systems Review Of Systems: See Below Constitutional: Reports: No Symptoms HEENT: Reports: No Symptoms Respiratory: Reports: No Symptoms Cardiovascular: Reports: Lightheadedness Endocrine: Reports: No Symptoms GI/Abdominal: Reports: No Symptoms : Reports: No Symptoms Musculoskeletal: Reports: No Symptoms Skin: Reports: No Symptoms Neurological: Reports: No Symptoms Psychiatric: Reports: No Symptoms Hematologic/Lymphatic: Reports: No Symptoms Immunologic: Reports: No Symptoms ED EXAM, GENERAL - Physical Exam Exam: See Below Exam Limited By: No Limitations General Appearance: Alert, WD/WN, No Apparent Distress Eye Exam: Bilateral Eye: EOMI Nose: Normal Inspection Neck: Normal Inspection Respiratory/Chest: No Respiratory Distress, Lungs Clear, Normal Breath Sounds Cardiovascular: Normal Peripheral Pulses, Regular Rate, Rhythm GI/Abdominal: Normal Bowel Sounds, Soft, Non-Tender Back Exam: Normal Inspection Extremities: Normal Inspection Neurological: Alert, Oriented, Normal Cognition, Normal Gait Skin Exam: Warm #1 Interpretation EKG Date: 11/27/20 Time: 10:45 Rhythm: NSR Rate (Beats/Min): 79 ST-T: Normal Course - Vital Signs Last Recorded V/S: Last Vital Signs Temp 97.5 F 11/27/20 10:58 Pulse 80 11/27/20 13:47 Resp 17 11/27/20 13:47 BP 127/96 H 11/27/20 13:47 Pulse Ox 98 11/27/20 13:47 Orthostatic Blood Pressure [ 134/96 Standing] Orthostatic Blood Pressure [ 127/84 Sitting] Orthostatic Blood Pressure [ 118/72 Supine] - Orders/Labs/Meds Orders: Active Orders 24 hr Category Date Time Status Patient Status [ADT] Routine ADT 11/27/20 14:12 Active Orthostatic Vital Signs [RC] ASDIRECTED Care 11/27/20 11:40 Active Oxygen Therapy [RC] PRN Care 11/27/20 14:49 Active Telemetry Monitoring [Cardiac Monitoring] [RC] . Care 11/27/20 14:55 Active DIRECTED Up With Assistance [RC] ASDIRECTED Care 11/27/20 14:49 Active VTE/DVT Education [RC] PER UNIT ROUTINE Care 11/27/20 14:49 Active Vital Signs [RC] Q4H Care 11/27/20 14:49 Active PT Evaluation and Treatment [CONS] Routine Cons 11/27/20 14:49 Active Regular Diet [DIET] Diet 11/27/20 Lunch Active Echo Comp wo Cont [US] Stat Exams 11/27/20 11:42 Taken CBC WITH AUTO DIFF [HEME] AM Lab 11/28/20 05:11 Ordered COMPREHENSIVE METABOLIC PN,CMP [CHEM] AM Lab 11/28/20 05:11 Ordered COVID-19/FLU A+B [MOLEC] Stat Lab 11/27/20 14:31 Ordered CRP [C-REACTIVE PROTEIN] [CHEM] Stat Lab 11/27/20 10:50 Received SEDIMENTATION RATE AUTO [HEME] Stat Lab 11/27/20 10:50 Received TROPONIN I [CHEM] Q6H Lab 11/27/20 16:30 Ordered TROPONIN I [CHEM] Q6H Lab 11/27/20 22:30 Ordered TSH [CHEM] Routine Lab 11/27/20 10:50 Received Enoxaparin [Lovenox] Med 11/27/20 15:00 Active 40 mg SUBCUT Q24H Ondansetron [Zofran] Med 11/27/20 14:49 Active 4 mg IVPUSH Q4H PRN Resuscitation Status Routine Resus Stat 11/27/20 14:49 Ordered Medication Orders Enoxaparin Sodium (Lovenox) 40 mg SUBCUT Q24H BELKIS Ondansetron HCl (Zofran) 4 mg IVPUSH Q4H PRN PRN Reason: Nausea Labs: Laboratory Tests 11/27/20 11/27/20 Range/Units 10:50 10:50 WBC 5.64 (4.0-11.0) K/uL RBC 4.43 (4.30-5.90) M/uL Hgb 15.1 (12.0-16.0) g/dL Hct 43.9 (36.0-46.0) % MCV 99.1 H (80.0-98.0) fL MCH 34.1 H (27.0-32.0) pg MCHC 34.4 (31.0-37.0) g/dL RDW Std Deviation 48.5 (28.0-62.0) fl RDW Coeff of Sameer 13 (11.0-15.0) % Plt Count 290 (150-400) K/uL MPV 10.00 (7.40-12.00) fL Neut % (Auto) 62.5 (48.0-80.0) % Lymph % (Auto) 18.3 (16.0-40.0) % [place] % (Auto) 16.0 H (0.0-15.0) % Eos % (Auto) 2.5 (0.0-7.0) % Baso % (Auto) 0.7 (0.0-1.5) % Neut # (Auto) 3.5 (1.4-5.7) K/uL Lymph # (Auto) 1.0 (0.6-2.4) K/uL [place] # (Auto) 0.9 H (0.0-0.8) K/uL Eos # (Auto) 0.1 (0.0-0.7) K/uL Baso # (Auto) 0.0 (0.0-0.1) K/uL Nucleated RBC % 0.0 /100WBC Nucleated RBCs # 0 K/uL Sodium 133 L (136-145) mmol/L Potassium 3.3 L (3.5-5.1) mmol/L Chloride 97 L (98-107) mmol/L Carbon Dioxide 25.6 (21.0-32.0) mmol/L BUN 9 (7.0-18.0) mg/dL Creatinine 1.0 (0.6-1.0) mg/dL Est Cr Clr Drug Dosing 52.64 mL/min Estimated GFR (MDRD) 58.5 ml/min Glucose 104 (74-106) mg/dL Calcium 9.1 (8.5-10.1) mg/dL Phosphorus 2.1 L (2.6-4.7) mg/dL Magnesium 2.0 (1.8-2.4) mg/dL Total Bilirubin 0.4 (0.2-1.0) mg/dL AST 30 (15-37) IU/L ALT 58 (14-63) IU/L Alkaline Phosphatase 77 (46-116) U/L Creatine Kinase 47 (26-308) U/L Troponin I < 0.050 (0.000-0.056) ng/mL Total Protein 8.5 H (6.4-8.2) g/dL Albumin 4.0 (3.4-5.0) g/dL Globulin 4.5 H (2.6-4.0) g/dL Albumin/Globulin Ratio 0.9 (0.9-1.6) Meds: Medications Generic Name Dose Route Start Last Admin Trade Name Freq PRN Reason Stop Dose Admin Enoxaparin Sodium 40 mg 11/27/20 15:00 Lovenox SUBCUT Q24H BELKIS Ondansetron HCl 4 mg 11/27/20 14:49 Zofran IVPUSH Q4H PRN Nausea Discontinued Medications Generic Name Dose Route Start Last Admin Trade Name Freq PRN Reason Stop Dose Admin Sodium Chloride 1,000 mls @ 999 mls/hr 11/27/20 11:41 11/27/20 11:52 Normal Saline IV 11/27/20 12:41 Not Given .Bolus ONE Sodium Chloride 1,000 mls @ 1,000 mls/hr 11/27/20 11:41 11/27/20 11:52 Normal Saline IV 11/27/20 12:40 1,000 mls/hr .Bolus ONE Administration Meclizine HCl 25 mg 11/27/20 14:10 Antivert PO 11/27/20 14:11 ONETIME ONE Ondansetron HCl 4 mg 11/27/20 11:39 11/27/20 11:51 Zofran IVPUSH 11/27/20 11:40 4 mg ONETIME ONE Administration Potassium Chloride 40 meq 11/27/20 13:00 11/27/20 13:05 Klor-Con M20 PO 11/27/20 13:01 40 meq ONETIME ONE Administration - Re-Assessments/Exams Free Text/Narrative Re-Assessment/Exam: 11/27/20 14:59 Patient with EKG reviewed. Patient still feeling lightheaded when ambulating and standing up. Will admit patient hospital for observation. Patient also had echo done in ED. Departure - Departure Time of Disposition: 14:11 Disposition: Admitted As Inpatient 65 Condition: Good Clinical Impression: Light-headedness Referrals: Tanya Rao MD [Primary Care Provider] - Forms: ED Department Discharge Sepsis Event Note (ED) - Evaluation Sepsis Screening Result: No Definite Risk - Focused Exam Vital Signs: Vital Signs Temp Pulse Resp BP Pulse Ox 11/27/20 13:47 80 17 127/96 H 98 11/27/20 12:39 66 17 113/59 L 98 11/27/20 11:28 85 16 123/77 98 11/27/20 10:58 97.5 F 81 17 142/91 H 99 - My Orders Last 24 Hours: My Active Orders 11/27/20 11:40 Orthostatic Vital Signs [RC] ASDIRECTED 11/27/20 11:42 Echo Comp wo Cont [US] Stat 11/27/20 14:12 Patient Status [ADT] Routine 11/27/20 14:31 COVID-19/FLU A+B [MOLEC] Stat - Assessment/Plan Last 24 Hours: My Active Orders 11/27/20 11:40 Orthostatic Vital Signs [RC] ASDIRECTED 11/27/20 11:42 Echo Comp wo Cont [US] Stat 11/27/20 14:12 Patient Status [ADT] Routine 11/27/20 14:31 COVID-19/FLU A+B [MOLEC] Stat Plan: Patient is a 50-year-old female presents today for lightheadedness. Patient seems to have some orthostatics. Will obtain labs x-ray EKG and reassess.
[2020-11-27 11:31] LABS: BLOOD UREA NITROGEN,BUN 9 mg/dL (7.0-18.0); CARBON DIOXIDE,CO2 25.6 mmol/L (21.0-32.0); CHLORIDE,CL 97 mmol/L (98-107); GLUCOSE RANDOM 104 mg/dL (74-106); POTASSIUM,K 3.3 mmol/L (3.5-5.1); SODIUM,NA 133 mmol/L (136-145)
[2020-11-27] MEDS ORDERED: Ondansetron 4 MG/2 ML SDV IVPUSH ONE (11:39)
[2020-11-27] MEDS ORDERED: Sodium Chloride 0.9% 1,000 ML IV ONE ×2 (11:41)
--- NOTE | 2020-11-27 12:19 | CR ---
Indication: Lightheadedness Comparison: Single view chest November 23, 2020 Technique: PA and lateral view chest Findings: There is hyperinflation and chronic interstitial change. There is no focal consolidation, effusion, or pneumothorax. The cardiomediastinal silhouette is within normal limits. The bony thorax is grossly intact. Impression: No acute cardiopulmonary abnormality. Dictated by Francisco Szymanski MD @ Nov 27 2020 12:16PM Signed by Dr. Francisco Szymanski @ Nov 27 2020 12:17PM
[2020-11-27] MEDS ORDERED: Potassium Chloride 20 MEQ Tab.ER PO ONE (13:00)
[2020-11-27] MEDS ORDERED: Meclizine 25 MG Tab PO ONE (14:10)
--- NOTE | 2020-11-27 14:51 | PCM.HP.2 ---
H&P History of Present Illness - General Date of Service: 11/27/20 Admit Problem/Dx: Admission Diagnosis/Problem Admission Diagnosis/Problem Lightheadedness Source of Information: Patient History Limitations: Reports: No Limitations - History of Present Illness Initial Comments - Free Text/Narative: 50-year-old female presented complaining of lightheadedness and chest pain on standing. She has a PMH of intermittent SVT, HTN , anxiety and depression. Patient was recently discharged from the hospital for chest pain and ACS rule out. She reports that for the past 3-4 days she has felt dizzy when changing positions particularly when standing up. The dizziness is associated with feeling as if she is going to faint, sweats, nausea, vomiting and chest pain that is described as "my heart feels like it's being squeezed." She will also notice that her heart rate goes up. She denies any loss of consciousness. These symptoms have been occurring over the past 8 months and are becoming more frequent. She denies any fevers, chills, sore throat, cough, abdominal pain, blood in stool, blood in urine, numbness or tingling in extremities. In the ER, EKG showed NSR with no acute ST changes. Potassium level 3.3, phosphorus level 2.1, troponin negative. CXR was unremarkable. ECHO was done in the ER and pending. She was given 1 L IV NS bolus, KCl 40 mEq x 1 and zofran. She was admitted for further evaluation and treatment. - Related Data Allergies/Adverse Reactions: Allergies Allergy/AdvReac Type Severity Reaction Status Date / Time acetaminophen Allergy Rash Verified 11/27/20 11:02 [From Darvocet-N] propoxyphene Allergy Rash Verified 11/27/20 11:02 [From Darvocet-N] propoxyphene napsylate Allergy Vomiting Verified 11/27/20 11:02 [From Darvocet-N] Home Medications: Home Meds Losartan/Hydrochlorothiazide [Losartan-HCTZ 100-25 MG] 1 tab PO DAILY 09/02/19 [History] hydrOXYzine pamoate [Hydroxyzine Pamoate] 50 mg PO Q6H PRN 09/13/19 [History] Topiramate 25 mg PO DAILY 11/23/20 [History] amLODIPine [Norvasc] 2.5 mg PO DAILY 11/23/20 [History] Zolpidem [Ambien] 5 mg PO BEDTIME PRN 11/24/20 [History] Phentermine HCl 37.5 mg PO DAILY 11/27/20 [History] Past Medical History - Past Health History Medical/Surgical History: Denies Medical/Surgical History HEENT History: Reports: Other (See Below) Other HEENT History: Wears glasses Cardiovascular History: Reports: Hypertension Respiratory History: Reports: None Gastrointestinal History: Reports: Bowel Obstruction, GERD Genitourinary History: Reports: None [employer] History: Reports: Polycystic Ovaries, Musculoskeletal History: Reports: Fracture, Fibromyalgia Other Musculoskeletal History: Hx fx bone in foot Neurological History: Reports: None Psychiatric History: Reports: Anxiety, Depression Endocrine/Metabolic History: Reports: Obesity/BMI 30+ Hematologic History: Reports: None Immunologic History: Reports: None Oncologic (Cancer) History: Reports: None Dermatologic History: Reports: None - Infectious Disease History Infectious Disease History: Reports: Chicken Pox - Past Surgical History Head Surgeries/Procedures: Reports: None HEENT Surgical History: Reports: None Cardiovascular Surgical History: Reports: None Respiratory Surgical History: Reports: None GI Surgical History: Reports: Appendectomy, Small Bowel Other GI Surgeries/Procedures: laproscopy, laparotomy with lysis of adhesions for "twisted bowel" Female Surgical History: Reports: Breast Biopsy, Breast Implant, Section, Hysterectomy Endocrine Surgical History: Reports: None Neurological Surgical History: Reports: None Musculoskeletal Surgical History: Reports: None Oncologic Surgical History: Reports: Lumpectomy Dermatological Surgical History: Reports: None Social & Family History - Family History Family Medical History: No Pertinent Family History - Tobacco Use Tobacco Use Status *Q: Never Tobacco User - Caffeine Use Caffeine Use: Reports: Tea - Recreational Drug Use Recreational Drug Use: No H&P Review of Systems - Review of Systems: Review Of Systems: Comprehensive ROS is negative, except as noted in HPI. Exam - Exam Exam: See Below - Vital Signs Vital Signs: Last Vital Signs Temp 36.4 C 11/27/20 10:58 Pulse 80 11/27/20 13:47 Resp 17 11/27/20 13:47 BP 127/96 H 11/27/20 13:47 Pulse Ox 98 11/27/20 13:47 Orthostatic Blood Pressure [ 134/96 Standing] Orthostatic Blood Pressure [ 127/84 Sitting] Orthostatic Blood Pressure [ 118/72 Supine] Weight: 80.739 kg - Exam General: Alert, Oriented, Cooperative, Other (NAD) HEENT: Conjunctiva Clear, Hearing Intact, Pupils Equal, Pupils Reactive Neck: Supple, Trachea Midline Lungs: Clear to Auscultation, Normal Respiratory Effort Cardiovascular: Regular Rate, Regular Rhythm GI/Abdominal Exam: Normal Bowel Sounds, Soft, Non-Tender, No Distention Extremities: Normal Inspection, No Pedal Edema Peripheral Pulses: 2+: Radial (L), Radial (R) Skin: Warm, Dry, Intact Neurological: Cranial Nerves Intact, Strength Equal Bilateral, Normal Speech, Normal Tone Neuro Extensive - Mental Status: Alert, Oriented x3, Normal Mood/Affect Psychiatric: Alert, Normal Affect, Normal Mood - Patient Data Lab Results Last 24 hrs: Laboratory Results - last 24 hr 11/27/20 11/27/20 Range/Units 10:50 10:50 WBC 5.64 (4.0-11.0) K/uL RBC 4.43 (4.30-5.90) M/uL Hgb 15.1 (12.0-16.0) g/dL Hct 43.9 (36.0-46.0) % MCV 99.1 H (80.0-98.0) fL MCH 34.1 H (27.0-32.0) pg MCHC 34.4 (31.0-37.0) g/dL RDW Std Deviation 48.5 (28.0-62.0) fl RDW Coeff of Sameer 13 (11.0-15.0) % Plt Count 290 (150-400) K/uL MPV 10.00 (7.40-12.00) fL Neut % (Auto) 62.5 (48.0-80.0) % Lymph % (Auto) 18.3 (16.0-40.0) % Dale % (Auto) 16.0 H (0.0-15.0) % Eos % (Auto) 2.5 (0.0-7.0) % Baso % (Auto) 0.7 (0.0-1.5) % Neut # (Auto) 3.5 (1.4-5.7) K/uL Lymph # (Auto) 1.0 (0.6-2.4) K/uL Dale # (Auto) 0.9 H (0.0-0.8) K/uL Eos # (Auto) 0.1 (0.0-0.7) K/uL Baso # (Auto) 0.0 (0.0-0.1) K/uL Nucleated RBC % 0.0 /100WBC Nucleated RBCs # 0 K/uL Sodium 133 L (136-145) mmol/L Potassium 3.3 L (3.5-5.1) mmol/L Chloride 97 L (98-107) mmol/L Carbon Dioxide 25.6 (21.0-32.0) mmol/L BUN 9 (7.0-18.0) mg/dL Creatinine 1.0 (0.6-1.0) mg/dL Est Cr Clr Drug Dosing 52.64 mL/min Estimated GFR (MDRD) 58.5 ml/min Glucose 104 (74-106) mg/dL Calcium 9.1 (8.5-10.1) mg/dL Phosphorus 2.1 L (2.6-4.7) mg/dL Magnesium 2.0 (1.8-2.4) mg/dL Total Bilirubin 0.4 (0.2-1.0) mg/dL AST 30 (15-37) IU/L ALT 58 (14-63) IU/L Alkaline Phosphatase 77 (46-116) U/L Creatine Kinase 47 (26-308) U/L Troponin I < 0.050 (0.000-0.056) ng/mL Total Protein 8.5 H (6.4-8.2) g/dL Albumin 4.0 (3.4-5.0) g/dL Globulin 4.5 H (2.6-4.0) g/dL Albumin/Globulin Ratio 0.9 (0.9-1.6) Result Diagrams: 11/27/20 10:50 11/27/20 10:50 Sepsis Event Note - Evaluation Sepsis Screening Result: No Definite Risk - Focused Exam Vital Signs: Vital Signs Temp Pulse Resp BP Pulse Ox 11/27/20 13:47 80 17 127/96 H 98 11/27/20 12:39 66 17 113/59 L 98 11/27/20 11:28 85 16 123/77 98 11/27/20 10:58 36.4 C 81 17 142/91 H 99 - Problem List (1) Light-headedness SNOMED Code(s): 935795464 ICD Code: R42 - DIZZINESS AND GIDDINESS Status: Acute Current Visit: Yes (2) Hypophosphatemia SNOMED Code(s): 3897032 ICD Code: E83.39 - OTHER DISORDERS OF PHOSPHORUS METABOLISM Status: Acute Current Visit: Yes (3) HTN (hypertension) SNOMED Code(s): 15287178 ICD Code: I10 - ESSENTIAL (PRIMARY) HYPERTENSION Status: Acute Current Visit: Yes (4) Anxiety SNOMED Code(s): 62111613 ICD Code: F41.9 - ANXIETY DISORDER, UNSPECIFIED Status: Acute Current Vis it: Yes (5) Chest pain SNOMED Code(s): 10548727 ICD Code: R07.9 - CHEST PAIN, UNSPECIFIED Status: Acute Current Visit: No (6) Hypokalemia SNOMED Code(s): 10730200 ICD Code: E87.6 - HYPOKALEMIA Status: Acute Current Visit: No Problem List Initiated/Reviewed/Updated: Yes Orders Last 24hrs: Active Orders 24 hr Category Date Time Status Patient Status [ADT] Routine ADT 11/27/20 14:12 Active Orthostatic Vital Signs [RC] ASDIRECTED Care 11/27/20 11:40 Active Oxygen Therapy [RC] PRN Care 11/27/20 14:49 Ordered Up With Assistance [RC] ASDIRECTED Care 11/27/20 14:49 Ordered VTE/DVT Education [RC] PER UNIT ROUTINE Care 11/27/20 14:49 Ordered Vital Signs [RC] Q4H Care 11/27/20 14:49 Ordered PT Evaluation and Treatment [CONS] Routine Cons 11/27/20 14:49 Ordered Regular Diet [DIET] Diet 11/27/20 Lunch Ordered Echo Comp wo Cont [US] Stat Exams 11/27/20 11:42 Taken CBC WITH AUTO DIFF [HEME] AM Lab 11/28/20 05:11 Ordered COMPREHENSIVE METABOLIC PN,CMP [CHEM] AM Lab 11/28/20 05:11 Ordered COVID-19/FLU A+B [MOLEC] Stat Lab 11/27/20 14:31 Ordered Enoxaparin [Lovenox] Med 11/27/20 15:00 Ordered 40 mg SUBCUT Q24H Ondansetron [Zofran] Med 11/27/20 14:49 Ordered 4 mg IVPUSH Q4H PRN Resuscitation Status Routine Resus Stat 11/27/20 14:49 Ordered Assessment/Plan Comment:: Assessment and Plan: 1. Postural dizziness likely secondary to orthostatic hypotension vs POTS: - Admit to med/surg. Patient on telemetry. Patient received 1 L IV NS bolus in the ER, will give 1 L IV LR @ 125 cc/hr. PT consulted for vestibular evaluation. ECHO is pending. 2. Chest pain: - Patient on telemetry. Will trend troponins. EKG showed NSR with no acute ischemic changes. 3. Hypokalemia: - Given 40 mEq KCl in ER. Will recheck with AM labs. 4. Hypophosphatemia: - Will replete with PO phosphorus an recheck with AM labs. 5. Past medical history of intermittent SVT, HTN and anxiety: - Continue home medications. 6. DVT prophylaxis: - Lovenox 40 mg subcut qd.
[2020-11-27] MEDS ORDERED: Lactated Ringers 1,000 ML IV SCH (15:15)
[2020-11-27] MEDS ORDERED: Ibuprofen 800 MG Tab PO ONE (15:18)
[2020-11-27] MEDS: Enoxaparin 40 MG/0.4 ML Syringe SUBCUT SCH (15:25)
[2020-11-27] MEDS ORDERED: Non-Formulary Medication 1 Each (Zolpidem 5 MG) PO PRN (15:30)
[2020-11-27] MEDS ORDERED: hydrOXYzine Pamoate 25 MG Cap PO PRN (15:34)
[2020-11-27 15:42] LABS: CORONAVIRUS COVID-19 NAA NEGATIVE (NEGATIVE); INFLUENZA A NAA NEGATIVE (NEGATIVE); INFLUENZA B NAA NEGATIVE (NEGATIVE)
[2020-11-27] MEDS ORDERED: Ibuprofen 400 MG Tab PO PRN (17:53)
[2020-11-27] MEDS: Phosphorus #1 250 MG Tab PO SCH (18:03)
[2020-11-27] MEDS: Ondansetron 4 MG/2 ML SDV IVPUSH PRN (18:03)
[2020-11-27] MEDS ORDERED: ZOLPIDEM 5 MG PO PRN (20:19)
[2020-11-27] MEDS ORDERED: Topiramate 50 MG Tab PO SCH (21:00)
[2020-11-28] MEDS: Phosphorus #1 250 MG Tab PO SCH ×3 (00:34→11:24)
[2020-11-28] MEDS: Ondansetron 4 MG/2 ML SDV IVPUSH PRN (05:58)
[2020-11-28 06:04] LABS: BLOOD UREA NITROGEN,BUN 9 mg/dL (7.0-18.0); CARBON DIOXIDE,CO2 23.1 mmol/L (21.0-32.0); CHLORIDE,CL 103 mmol/L (98-107); GLUCOSE RANDOM 79 mg/dL (74-106); POTASSIUM,K 3.8 mmol/L (3.5-5.1); SODIUM,NA 138 mmol/L (136-145)
--- NOTE | 2020-11-28 08:11 | PCM.PN ---
<Prosper Singh - Last Filed: 11/28/20 11:16> - General Info Date of Service: 11/28/20 Subjective Update: Mild dizziness when ambulating to bathroom and nausea. No vomiting, fevers, chills, SOB or chest pain overnight. - Patient Data Vitals - Most Recent: Last Vital Signs Temp 36.1 C 11/28/20 04:29 Pulse 66 11/28/20 04:29 Resp 18 11/28/20 04:29 BP 108/71 11/28/20 04:29 Pulse Ox 98 11/28/20 04:29 Orthostatic Blood Pressure [ 132/90 Standing] Orthostatic Blood Pressure [ 123/79 Sitting] Orthostatic Blood Pressure [ 112/72 Supine] Weight - Most Recent: 81.284 kg I&O - Last 24 Hours: Intake & Output 11/27/20 11/28/20 11/28/20 22:59 06:59 14:59 Intake Total 800 Output Total 1350 Balance -550 Lab Results Last 24 Hours: Laboratory Results - last 24 hr 11/27/20 11/27/20 11/27/20 Range/Units 10:50 10:50 10:50 WBC 5.64 (4.0-11.0) K/uL RBC 4.43 (4.30-5.90) M/uL Hgb 15.1 (12.0-16.0) g/dL Hct 43.9 (36.0-46.0) % MCV 99.1 H (80.0-98.0) fL MCH 34.1 H (27.0-32.0) pg MCHC 34.4 (31.0-37.0) g/dL RDW Std Deviation 48.5 (28.0-62.0) fl RDW Coeff of Sameer 13 (11.0-15.0) % Plt Count 290 (150-400) K/uL MPV 10.00 (7.40-12.00) fL Neut % (Auto) 62.5 (48.0-80.0) % Lymph % (Auto) 18.3 (16.0-40.0) % [place] % (Auto) 16.0 H (0.0-15.0) % Eos % (Auto) 2.5 (0.0-7.0) % Baso % (Auto) 0.7 (0.0-1.5) % Neut # (Auto) 3.5 (1.4-5.7) K/uL Lymph # (Auto) 1.0 (0.6-2.4) K/uL [place] # (Auto) 0.9 H (0.0-0.8) K/uL Eos # (Auto) 0.1 (0.0-0.7) K/uL Baso # (Auto) 0.0 (0.0-0.1) K/uL Nucleated RBC % 0.0 /100WBC Nucleated RBCs # 0 K/uL ESR 15 (0-29) mm/hr Sodium 133 L (136-145) mmol/L Potassium 3.3 L (3.5-5.1) mmol/L Chloride 97 L (98-107) mmol/L Carbon Dioxide 25.6 (21.0-32.0) mmol/L BUN 9 (7.0-18.0) mg/dL Creatinine 1.0 (0.6-1.0) mg/dL Est Cr Clr Drug Dosing 52.64 mL/min Estimated GFR (MDRD) 58.5 ml/min Glucose 104 (74-106) mg/dL Calcium 9.1 (8.5-10.1) mg/dL Phosphorus 2.1 L (2.6-4.7) mg/dL Magnesium 2.0 (1.8-2.4) mg/dL Total Bilirubin 0.4 (0.2-1.0) mg/dL AST 30 (15-37) IU/L ALT 58 (14-63) IU/L Alkaline Phosphatase 77 (46-116) U/L Creatine Kinase 47 (26-308) U/L Troponin I < 0.050 (0.000-0.056) ng/mL C-Reactive Protein (0.00-0.90) mg/dL Total Protein 8.5 H (6.4-8.2) g/dL Albumin 4.0 (3.4-5.0) g/dL Globulin 4.5 H (2.6-4.0) g/dL Albumin/Globulin Ratio 0.9 (0.9-1.6) TSH 3rd Generation (0.36-3.74) uIU/mL Influenza Type A RNA (NEGATIVE) Influenza Type B RNA (NEGATIVE) SARS-CoV-2 RNA ([facility]) (NEGATIVE) 11/27/20 11/27/20 11/27/20 Range/Units 10:50 14:57 16:28 WBC (4.0-11.0) K/uL RBC (4.30-5.90) M/uL Hgb (12.0-16.0) g/dL Hct (36.0-46.0) % MCV (80.0-98.0) fL MCH (27.0-32.0) pg MCHC (31.0-37.0) g/dL RDW Std Deviation (28.0-62.0) fl RDW Coeff of Sameer (11.0-15.0) % Plt Count (150-400) K/uL MPV (7.40-12.00) fL Neut % (Auto) (48.0-80.0) % Lymph % (Auto) (16.0-40.0) % [place] % (Auto) (0.0-15.0) % Eos % (Auto) (0.0-7.0) % Baso % (Auto) (0.0-1.5) % Neut # (Auto) (1.4-5.7) K/uL Lymph # (Auto) (0.6-2.4) K/uL [place] # (Auto) (0.0-0.8) K/uL Eos # (Auto) (0.0-0.7) K/uL Baso # (Auto) (0.0-0.1) K/uL Nucleated RBC % /100WBC Nucleated RBCs # K/uL ESR (0-29) mm/hr Sodium (136-145) mmol/L Potassium (3.5-5.1) mmol/L Chloride (98-107) mmol/L Carbon Dioxide (21.0-32.0) mmol/L BUN (7.0-18.0) mg/dL Creatinine (0.6-1.0) mg/dL Est Cr Clr Drug Dosing mL/min Estimated GFR (MDRD) ml/min Glucose (74-106) mg/dL Calcium (8.5-10.1) mg/dL Phosphorus (2.6-4.7) mg/dL Magnesium (1.8-2.4) mg/dL Total Bilirubin (0.2-1.0) mg/dL AST (15-37) IU/L ALT (14-63) IU/L Alkaline Phosphatase (46-116) U/L Creatine Kinase (26-308) U/L Troponin I < 0.050 (0.000-0.056) ng/mL C-Reactive Protein 0.50 (0.00-0.90) mg/dL Total Protein (6.4-8.2) g/dL Albumin (3.4-5.0) g/dL Globulin (2.6-4.0) g/dL Albumin/Globulin Ratio (0.9-1.6) TSH 3rd Generation 2.02 (0.36-3.74) uIU/mL Influenza Type A RNA NEGATIVE (NEGATIVE) Influenza Type B RNA NEGATIVE (NEGATIVE) SARS-CoV-2 RNA ([facility]) NEGATIVE (NEGATIVE) 11/27/20 11/28/20 11/28/20 Range/Units 22:31 05:15 05:15 WBC 5.61 (4.0-11.0) K/uL RBC 3.85 L (4.30-5.90) M/uL Hgb 13.1 (12.0-16.0) g/dL Hct 38.5 (36.0-46.0) % MCV 100.0 H (80.0-98.0) fL MCH 34.0 H (27.0-32.0) pg MCHC 34.0 (31.0-37.0) g/dL RDW Std Deviation 49.1 (28.0-62.0) fl RDW Coeff of Sameer 13 (11.0-15.0) % Plt Count 267 (150-400) K/uL MPV 10.00 (7.40-12.00) fL Neut % (Auto) 53.3 (48.0-80.0) % Lymph % (Auto) 26.6 (16.0-40.0) % [place] % (Auto) 15.5 H (0.0-15.0) % Eos % (Auto) 3.7 (0.0-7.0) % Baso % (Auto) 0.9 (0.0-1.5) % Neut # (Auto) 3.0 (1.4-5.7) K/uL Lymph # (Auto) 1.5 (0.6-2.4) K/uL [place] # (Auto) 0.9 H (0.0-0.8) K/uL Eos # (Auto) 0.2 (0.0-0.7) K/uL Baso # (Auto) 0.1 (0.0-0.1) K/uL Nucleated RBC % 0.0 /100WBC Nucleated RBCs # 0 K/uL ESR (0-29) mm/hr Sodium 138 (136-145) mmol/L Potassium 3.8 (3.5-5.1) mmol/L Chloride 103 (98-107) mmol/L Carbon Dioxide 23.1 (21.0-32.0) mmol/L BUN 9 (7.0-18.0) mg/dL Creatinine 0.9 (0.6-1.0) mg/dL Est Cr Clr Drug Dosing 58.49 mL/min Estimated GFR (MDRD) > 60.0 ml/min Glucose 79 (74-106) mg/dL Calcium 8.5 (8.5-10.1) mg/dL Phosphorus 3.5 (2.6-4.7) mg/dL Magnesium 2.1 (1.8-2.4) mg/dL Total Bilirubin 0.3 (0.2-1.0) mg/dL AST 29 (15-37) IU/L ALT 47 (14-63) IU/L Alkaline Phosphatase 59 (46-116) U/L Creatine Kinase (26-308) U/L Troponin I < 0.050 (0.000-0.056) ng/mL C-Reactive Protein (0.00-0.90) mg/dL Total Protein 6.8 (6.4-8.2) g/dL Albumin 3.1 L (3.4-5.0) g/dL Globulin 3.7 (2.6-4.0) g/dL Albumin/Globulin Ratio 0.8 L (0.9-1.6) TSH 3rd Generation (0.36-3.74) uIU/mL Influenza Type A RNA (NEGATIVE) Influenza Type B RNA (NEGATIVE) SARS-CoV-2 RNA ([facility]) (NEGATIVE) Med Orders - Current: Current Medications Amlodipine Besylate (Norvasc) 2.5 mg PO DAILY [facility] Enoxaparin Sodium (Lovenox) 40 mg SUBCUT Q24H [facility] Last Admin: 11/27/20 15:25 Dose: 40 mg Documented by: HCTZ/Losartan Potassium (Hyzaar 50-12.5 Mg) 2 tab PO DAILY [facility] Hydroxyzine Pamoate (Vistaril) 50 mg PO Q6H PRN PRN Reason: Anxiety Ibuprofen (Motrin) 400 mg PO Q6H PRN PRN Reason: Pain Zolpidem 5 Mg Own (Med) 0 each PO BEDTIME PRN PRN Reason: Sleep Last Admin: 11/27/20 21:46 Dose: 1 each Documented by: Ondansetron HCl (Zofran) 4 mg IVPUSH Q4H PRN PRN Reason: Nausea Last Admin: 11/28/20 05:58 Dose: 4 mg Documented by: Sodium Phosphate (Neutra-Phos) 250 mg PO QID [facility] Stop: 11/28/20 12:01 Last Admin: 11/28/20 05:46 Dose: 250 mg Documented by: Topiramate (Topamax) 25 mg PO BEDTIME [facility] Last Admin: 11/27/20 21:45 Dose: 25 mg Documented by: Discontinued Medications Sodium Chloride (Normal Saline) 1,000 mls @ 999 mls/hr IV .Bolus ONE Stop: 11/27/20 12:41 Last Admin: 11/27/20 11:52 Dose: Not Given Documented by: Sodium Chloride (Normal Saline) 1,000 mls @ 1,000 mls/hr IV .Bolus ONE Stop: 11/27/20 12:40 Last Admin: 11/27/20 11:52 Dose: 1,000 mls/hr Documented by: Lactated Ringer's (Ringers, Lactated) 1,000 mls @ 125 mls/hr IV ASDIRECTED [facility] Stop: 11/27/20 23:14 Last Admin: 11/27/20 16:37 Dose: 125 mls/hr Documented by: Ibuprofen (Motrin) 800 mg PO ONETIME ONE Stop: 11/27/20 15:19 Last Admin: 11/27/20 15:25 Dose: 800 mg Documented by: Meclizine HCl (Antivert) 25 mg PO ONETIME ONE Stop: 11/27/20 14:11 Last Admin: 11/27/20 15:29 Dose: Not Given Documented by: Ondansetron HCl (Zofran) 4 mg IVPUSH ONETIME ONE Stop: 11/27/20 11:40 Last Admin: 11/27/20 11:51 Dose: 4 mg Documented by: Potassium Chloride (Klor-Con M20) 40 meq PO ONETIME ONE Stop: 11/27/20 13:01 Last Admin: 11/27/20 13:05 Dose: 40 meq Documented by: - Exam General: Alert, Oriented, Cooperative, No Acute Distress Lungs: Clear to Auscultation, Normal Respiratory Effort Cardiovascular: Regular Rate, Regular Rhythm GI/Abdominal Exam: Normal Bowel Sounds, Soft, Non-Tender, No Distention Extremities: Normal Inspection, No Pedal Edema - Patient Data Lab Results Last 24 hrs: Laboratory Results - last 24 hr 11/27/20 11/27/20 11/27/20 Range/Units 10:50 10:50 10:50 WBC 5.64 (4.0-11.0) K/uL RBC 4.43 (4.30-5.90) M/uL Hgb 15.1 (12.0-16.0) g/dL Hct 43.9 (36.0-46.0) % MCV 99.1 H (80.0-98.0) fL MCH 34.1 H (27.0-32.0) pg MCHC 34.4 (31.0-37.0) g/dL RDW Std Deviation 48.5 (28.0-62.0) fl RDW Coeff of Sameer 13 (11.0-15.0) % Plt Count 290 (150-400) K/uL MPV 10.00 (7.40-12.00) fL Neut % (Auto) 62.5 (48.0-80.0) % Lymph % (Auto) 18.3 (16.0-40.0) % [place] % (Auto) 16.0 H (0.0-15.0) % Eos % (Auto) 2.5 (0.0-7.0) % Baso % (Auto) 0.7 (0.0-1.5) % Neut # (Auto) 3.5 (1.4-5.7) K/uL Lymph # (Auto) 1.0 (0.6-2.4) K/uL [place] # (Auto) 0.9 H (0.0-0.8) K/uL Eos # (Auto) 0.1 (0.0-0.7) K/uL Baso # (Auto) 0.0 (0.0-0.1) K/uL Nucleated RBC % 0.0 /100WBC Nucleated RBCs # 0 K/uL ESR 15 (0-29) mm/hr Sodium 133 L (136-145) mmol/L Potassium 3.3 L (3.5-5.1) mmol/L Chloride 97 L (98-107) mmol/L Carbon Dioxide 25.6 (21.0-32.0) mmol/L BUN 9 (7.0-18.0) mg/dL Creatinine 1.0 (0.6-1.0) mg/dL Est Cr Clr Drug Dosing 52.64 mL/min Estimated GFR (MDRD) 58.5 ml/min Glucose 104 (74-106) mg/dL Calcium 9.1 (8.5-10.1) mg/dL Phosphorus 2.1 L (2.6-4.7) mg/dL Magnesium 2.0 (1.8-2.4) mg/dL Total Bilirubin 0.4 (0.2-1.0) mg/dL AST 30 (15-37) IU/L ALT 58 (14-63) IU/L Alkaline Phosphatase 77 (46-116) U/L Creatine Kinase 47 (26-308) U/L Troponin I < 0.050 (0.000-0.056) ng/mL C-Reactive Protein (0.00-0.90) mg/dL Total Protein 8.5 H (6.4-8.2) g/dL Albumin 4.0 (3.4-5.0) g/dL Globulin 4.5 H (2.6-4.0) g/dL Albumin/Globulin Ratio 0.9 (0.9-1.6) TSH 3rd Generation (0.36-3.74) uIU/mL Influenza Type A RNA (NEGATIVE) Influenza Type B RNA (NEGATIVE) SARS-CoV-2 RNA ([facility]) (NEGATIVE) 11/27/20 11/27/20 11/27/20 Range/Units 10:50 14:57 16:28 WBC (4.0-11.0) K/uL RBC (4.30-5.90) M/uL Hgb (12.0-16.0) g/dL Hct (36.0-46.0) % MCV (80.0-98.0) fL MCH (27.0-32.0) pg MCHC (31.0-37.0) g/dL RDW Std Deviation (28.0-62.0) fl RDW Coeff of Sameer (11.0-15.0) % Plt Count (150-400) K/uL MPV (7.40-12.00) fL Neut % (Auto) (48.0-80.0) % Lymph % (Auto) (16.0-40.0) % [place] % (Auto) (0.0-15.0) % Eos % (Auto) (0.0-7.0) % Baso % (Auto) (0.0-1.5) % Neut # (Auto) (1.4-5.7) K/uL Lymph # (Auto) (0.6-2.4) K/uL [place] # (Auto) (0.0-0.8) K/uL Eos # (Auto) (0.0-0.7) K/uL Baso # (Auto) (0.0-0.1) K/uL Nucleated RBC % /100WBC Nucleated RBCs # K/uL ESR (0-29) mm/hr Sodium (136-145) mmol/L Potassium (3.5-5.1) mmol/L Chloride (98-107) mmol/L Carbon Dioxide (21.0-32.0) mmol/L BUN (7.0-18.0) mg/dL Creatinine (0.6-1.0) mg/dL Est Cr Clr Drug Dosing mL/min Estimated GFR (MDRD) ml/min Glucose (74-106) mg/dL Calcium (8.5-10.1) mg/dL Phosphorus (2.6-4.7) mg/dL Magnesium (1.8-2.4) mg/dL Total Bilirubin (0.2-1.0) mg/dL AST (15-37) IU/L ALT (14-63) IU/L Alkaline Phosphatase (46-116) U/L Creatine Kinase (26-308) U/L Troponin I < 0.050 (0.000-0.056) ng/mL C-Reactive Protein 0.50 (0.00-0.90) mg/dL Total Protein (6.4-8.2) g/dL Albumin (3.4-5.0) g/dL Globulin (2.6-4.0) g/dL Albumin/Globulin Ratio (0.9-1.6) TSH 3rd Generation 2.02 (0.36-3.74) uIU/mL Influenza Type A RNA NEGATIVE (NEGATIVE) Influenza Type B RNA NEGATIVE (NEGATIVE) SARS-CoV-2 RNA ([facility]) NEGATIVE (NEGATIVE) 11/27/20 11/28/20 11/28/20 Range/Units 22:31 05:15 05:15 WBC 5.61 (4.0-11.0) K/uL RBC 3.85 L (4.30-5.90) M/uL Hgb 13.1 (12.0-16.0) g/dL Hct 38.5 (36.0-46.0) % MCV 100.0 H (80.0-98.0) fL MCH 34.0 H (27.0-32.0) pg MCHC 34.0 (31.0-37.0) g/dL RDW Std Deviation 49.1 (28.0-62.0) fl RDW Coeff of Sameer 13 (11.0-15.0) % Plt Count 267 (150-400) K/uL MPV 10.00 (7.40-12.00) fL Neut % (Auto) 53.3 (48.0-80.0) % Lymph % (Auto) 26.6 (16.0-40.0) % [place] % (Auto) 15.5 H (0.0-15.0) % Eos % (Auto) 3.7 (0.0-7.0) % Baso % (Auto) 0.9 (0.0-1.5) % Neut # (Auto) 3.0 (1.4-5.7) K/uL Lymph # (Auto) 1.5 (0.6-2.4) K/uL [place] # (Auto) 0.9 H (0.0-0.8) K/uL Eos # (Auto) 0.2 (0.0-0.7) K/uL Baso # (Auto) 0.1 (0.0-0.1) K/uL Nucleated RBC % 0.0 /100WBC Nucleated RBCs # 0 K/uL ESR (0-29) mm/hr Sodium 138 (136-145) mmol/L Potassium 3.8 (3.5-5.1) mmol/L Chloride 103 (98-107) mmol/L Carbon Dioxide 23.1 (21.0-32.0) mmol/L BUN 9 (7.0-18.0) mg/dL Creatinine 0.9 (0.6-1.0) mg/dL Est Cr Clr Drug Dosing 58.49 mL/min Estimated GFR (MDRD) > 60.0 ml/min Glucose 79 (74-106) mg/dL Calcium 8.5 (8.5-10.1) mg/dL Phosphorus 3.5 (2.6-4.7) mg/dL Magnesium 2.1 (1.8-2.4) mg/dL Total Bilirubin 0.3 (0.2-1.0) mg/dL AST 29 (15-37) IU/L ALT 47 (14-63) IU/L Alkaline Phosphatase 59 (46-116) U/L Creatine Kinase (26-308) U/L Troponin I < 0.050 (0.000-0.056) ng/mL C-Reactive Protein (0.00-0.90) mg/dL Total Protein 6.8 (6.4-8.2) g/dL Albumin 3.1 L (3.4-5.0) g/dL Globulin 3.7 (2.6-4.0) g/dL Albumin/Globulin Ratio 0.8 L (0.9-1.6) TSH 3rd Generation (0.36-3.74) uIU/mL Influenza Type A RNA (NEGATIVE) Influenza Type B RNA (NEGATIVE) SARS-CoV-2 RNA ([facility]) (NEGATIVE) Result Diagrams: 11/28/20 05:15 11/28/20 05:15 Sepsis Event Note - Evaluation Sepsis Screening Result: No Definite Risk - Focused Exam Vital Signs: Vital Signs Temp Pulse Resp BP Pulse Ox 11/28/20 04:29 36.1 C 66 18 108/71 98 11/28/20 01:00 36.4 C 64 18 116/55 L 98 - Problem List & Annotations (1) Light-headedness SNOMED Code(s): 865827686 Code(s): R42 - DIZZINESS AND GIDDINESS Status: Acute (2) Hypophosphatemia SNOMED Code(s): 2741462 Code(s): E83.39 - OTHER DISORDERS OF PHOSPHORUS METABOLISM Status: Acute (3) HTN (hypertension) SNOMED Code(s): 27497838 Code(s): I10 - ESSENTIAL (PRIMARY) HYPERTENSION Status: Acute (4) Anxiety SNOMED Code(s): 87745423 Code(s): F41.9 - ANXIETY DISORDER, UNSPECIFIED Status: Acute (5) Chest pain SNOMED Code(s): 42639115 Code(s): R07.9 - CHEST PAIN, UNSPECIFIED Status: Acute (6) Hypokalemia SNOMED Code(s): 09313790 Code(s): E87.6 - HYPOKALEMIA Status: Acute - Problem List Review Problem List Initiated/Reviewed/Updated: Yes - My Orders Last 24 Hours: My Active Orders 11/27/20 Lunch Regular Diet [DIET] 11/27/20 14:49 Oxygen Therapy [RC] PRN Up With Assistance [RC] ASDIRECTED VTE/DVT Education [RC] PER UNIT ROUTINE Vital Signs [RC] Q4H PT Evaluation and Treatment [CONS] Routine Ondansetron [Zofran] 4 mg IVPUSH Q4H PRN Resuscitation Status Routine 11/27/20 14:55 Telemetry Monitoring [Cardiac Monitoring] [RC] Q8H 11/27/20 15:00 Enoxaparin [Lovenox] 40 mg SUBCUT Q24H 11/27/20 15:34 hydrOXYzine pamoate [Vistaril] 50 mg PO Q6H PRN 11/27/20 17:53 Ibuprofen [Motrin] 400 mg PO Q6H PRN 11/27/20 18:00 Phosphorus #1 [Neutra-Phos] 250 mg PO QID 11/27/20 20:19 Non-Formulary Medication [NF Drug] 0 each PO BEDTIME PRN 11/27/20 21:00 Topiramate [Topamax] 25 mg PO BEDTIME 11/28/20 09:00 Hydrochlorothiazide/Losartan [Hyzaar 50-12.5 MG] 2 tab PO DAILY amLODIPine [Norvasc] 2.5 mg PO DAILY - Plan Plan:: Assessment and Plan: 1. Postural dizziness likely secondary to orthostatic hypotension vs POTS: - Patient on telemetry, no reported events overnight. PT consulted for vestibular evaluation. Will start metoprolol succinate 12.5 mg qd. - Will need cardiology follow-up outpatient. - ECHO showed LVEF 55-60% and no evidence of pericardial effusion. 2. Chest pain: - Troponins trended and negative x3. - EKG showed NSR with no acute ischemic changes. 3. Hypokalemia, resolved. 4. Hypophosphatemia, resolved. 5. Past medical history of intermittent SVT, HTN and anxiety: - Will discontinue HCTZ, continue losartan 12.5 mg qd and amlodipine 2.5 mg qd. 6. DVT prophylaxis: - Lovenox 40 mg subcut qd. <Kyle Rondon - Last Filed: 11/28/20 23:21> - General Info Subjective Update: I have seen and evaluated the patient and agree with the residents note unless specified in my note - Patient Data Vitals - Most Recent: Last Vital Signs Temp 36.5 C 11/28/20 16:00 Pulse 66 11/28/20 16:00 Resp 18 11/28/20 16:00 BP 122/78 11/28/20 16:00 Pulse Ox 100 11/28/20 16:00 Orthostatic Blood Pressure [ 132/90 Standing] Orthostatic Blood Pressure [ 123/79 Sitting] Orthostatic Blood Pressure [ 112/72 Supine] I&O - Last 24 Hours: Intake & Output 11/28/20 11/28/20 11/29/20 14:59 22:59 06:59 Intake Total 1000 Output Total 1600 Balance -600 Lab Results Last 24 Hours: Laboratory Results - last 24 hr 11/28/20 11/28/20 Range/Units 05:15 05:15 WBC 5.61 (4.0-11.0) K/uL RBC 3.85 L (4.30-5.90) M/uL Hgb 13.1 (12.0-16.0) g/dL Hct 38.5 (36.0-46.0) % MCV 100.0 H (80.0-98.0) fL MCH 34.0 H (27.0-32.0) pg MCHC 34.0 (31.0-37.0) g/dL RDW Std Deviation 49.1 (28.0-62.0) fl RDW Coeff of Sameer 13 (11.0-15.0) % Plt Count 267 (150-400) K/uL MPV 10.00 (7.40-12.00) fL Neut % (Auto) 53.3 (48.0-80.0) % Lymph % (Auto) 26.6 (16.0-40.0) % [place] % (Auto) 15.5 H (0.0-15.0) % Eos % (Auto) 3.7 (0.0-7.0) % Baso % (Auto) 0.9 (0.0-1.5) % Neut # (Auto) 3.0 (1.4-5.7) K/uL Lymph # (Auto) 1.5 (0.6-2.4) K/uL [place] # (Auto) 0.9 H (0.0-0.8) K/uL Eos # (Auto) 0.2 (0.0-0.7) K/uL Baso # (Auto) 0.1 (0.0-0.1) K/uL Nucleated RBC % 0.0 /100WBC Nucleated RBCs # 0 K/uL Sodium 138 (136-145) mmol/L Potassium 3.8 (3.5-5.1) mmol/L Chloride 103 (98-107) mmol/L Carbon Dioxide 23.1 (21.0-32.0) mmol/L BUN 9 (7.0-18.0) mg/dL Creatinine 0.9 (0.6-1.0) mg/dL Est Cr Clr Drug Dosing 58.49 mL/min Estimated GFR (MDRD) > 60.0 ml/min Glucose 79 (74-106) mg/dL Calcium 8.5 (8.5-10.1) mg/dL Phosphorus 3.5 (2.6-4.7) mg/dL Magnesium 2.1 (1.8-2.4) mg/dL Total Bilirubin 0.3 (0.2-1.0) mg/dL AST 29 (15-37) IU/L ALT 47 (14-63) IU/L Alkaline Phosphatase 59 (46-116) U/L Total Protein 6.8 (6.4-8.2) g/dL Albumin 3.1 L (3.4-5.0) g/dL Globulin 3.7 (2.6-4.0) g/dL Albumin/Globulin Ratio 0.8 L (0.9-1.6) Med Orders - Current: Current Medications Discontinued Medications Amlodipine Besylate (Norvasc) 2.5 mg PO DAILY [facility] Last Admin: 11/28/20 09:59 Dose: 2.5 mg Documented by: Enoxaparin Sodium (Lovenox) 40 mg SUBCUT Q24H [facility] Last Admin: 11/28/20 15:54 Dose: 40 mg Documented by: HCTZ/Losartan Potassium (Hyzaar 50-12.5 Mg) 2 tab PO DAILY [facility] Last Admin: 11/28/20 12:14 Dose: Not Given Documented by: Hydroxyzine Pamoate (Vistaril) 50 mg PO Q6H PRN PRN Reason: Anxiety Sodium Chloride (Normal Saline) 1,000 mls @ 999 mls/hr IV .Bolus ONE Stop: 11/27/20 12:41 Last Admin: 11/27/20 11:52 Dose: Not Given Documented by: Sodium Chloride (Normal Saline) 1,000 mls @ 1,000 mls/hr IV .Bolus ONE Stop: 11/27/20 12:40 Last Admin: 11/27/20 11:52 Dose: 1,000 mls/hr Documented by: Lactated Ringer's (Ringers, Lactated) 1,000 mls @ 125 mls/hr IV ASDIRECTED [facility] Stop: 11/27/20 23:14 Last Admin: 11/27/20 16:37 Dose: 125 mls/hr Documented by: Ibuprofen (Motrin) 800 mg PO ONETIME ONE Stop: 11/27/20 15:19 Last Admin: 11/27/20 15:25 Dose: 800 mg Documented by: Ibuprofen (Motrin) 400 mg PO Q6H PRN PRN Reason: Pain Losartan Potassium (Cozaar) 12.5 mg PO DAILY [facility] Last Admin: 11/28/20 10:22 Dose: 12.5 mg Documented by: Meclizine HCl (Antivert) 25 mg PO ONETIME ONE Stop: 11/27/20 14:11 Last Admin: 11/27/20 15:29 Dose: Not Given Documented by: Metoprolol Succinate (Toprol Xl) 12.5 mg PO DAILY [facility] Last Admin: 11/28/20 10:06 Dose: 12.5 mg Documented by: Zolpidem 5 Mg Own (Med) 0 each PO BEDTIME PRN PRN Reason: Sleep Last Admin: 11/27/20 21:46 Dose: 1 each Documented by: Ondansetron HCl (Zofran) 4 mg IVPUSH ONETIME ONE Stop: 11/27/20 11:40 Last Admin: 11/27/20 11:51 Dose: 4 mg Documented by: Ondansetron HCl (Zofran) 4 mg IVPUSH Q4H PRN PRN Reason: Nausea Last Admin: 11/28/20 05:58 Dose: 4 mg Documented by: Potassium Chloride (Klor-Con M20) 40 meq PO ONETIME ONE Stop: 11/27/20 13:01 Last Admin: 11/27/20 13:05 Dose: 40 meq Documented by: Sodium Phosphate (Neutra-Phos) 250 mg PO QID [facility] Stop: 11/28/20 12:01 Last Admin: 11/28/20 11:24 Dose: 250 mg Documented by: Topiramate (Topamax) 25 mg PO BEDTIME [facility] Last Admin: 11/27/20 21:45 Dose: 25 mg Documented by: - Patient Data Lab Results Last 24 hrs: Laboratory Results - last 24 hr 11/28/20 11/28/20 Range/Units 05:15 05:15 WBC 5.61 (4.0-11.0) K/uL RBC 3.85 L (4.30-5.90) M/uL Hgb 13.1 (12.0-16.0) g/dL Hct 38.5 (36.0-46.0) % MCV 100.0 H (80.0-98.0) fL MCH 34.0 H (27.0-32.0) pg MCHC 34.0 (31.0-37.0) g/dL RDW Std Deviation 49.1 (28.0-62.0) fl RDW Coeff of Sameer 13 (11.0-15.0) % Plt Count 267 (150-400) K/uL MPV 10.00 (7.40-12.00) fL Neut % (Auto) 53.3 (48.0-80.0) % Lymph % (Auto) 26.6 (16.0-40.0) % [place] % (Auto) 15.5 H (0.0-15.0) % Eos % (Auto) 3.7 (0.0-7.0) % Baso % (Auto) 0.9 (0.0-1.5) % Neut # (Auto) 3.0 (1.4-5.7) K/uL Lymph # (Auto) 1.5 (0.6-2.4) K/uL [place] # (Auto) 0.9 H (0.0-0.8) K/uL Eos # (Auto) 0.2 (0.0-0.7) K/uL Baso # (Auto) 0.1 (0.0-0.1) K/uL Nucleated RBC % 0.0 /100WBC Nucleated RBCs # 0 K/uL Sodium 138 (136-145) mmol/L Potassium 3.8 (3.5-5.1) mmol/L Chloride 103 (98-107) mmol/L Carbon Dioxide 23.1 (21.0-32.0) mmol/L BUN 9 (7.0-18.0) mg/dL Creatinine 0.9 (0.6-1.0) mg/dL Est Cr Clr Drug Dosing 58.49 mL/min Estimated GFR (MDRD) > 60.0 ml/min Glucose 79 (74-106) mg/dL Calcium 8.5 (8.5-10.1) mg/dL Phosphorus 3.5 (2.6-4.7) mg/dL Magnesium 2.1 (1.8-2.4) mg/dL Total Bilirubin 0.3 (0.2-1.0) mg/dL AST 29 (15-37) IU/L ALT 47 (14-63) IU/L Alkaline Phosphatase 59 (46-116) U/L Total Protein 6.8 (6.4-8.2) g/dL Albumin 3.1 L (3.4-5.0) g/dL Globulin 3.7 (2.6-4.0) g/dL Albumin/Globulin Ratio 0.8 L (0.9-1.6) Result Diagrams: 11/28/20 05:15 11/28/20 05:15 Sepsis Event Note - Focused Exam Vital Signs: Vital Signs Temp Pulse Resp BP Pulse Ox Pulse Ox 11/28/20 16:00 36.5 C 66 18 122/78 99 100
[2020-11-28] MEDS ORDERED: amLODIPine 2.5 MG Tab PO SCH (09:00)
[2020-11-28] MEDS ORDERED: Hydrochlorothiazide/Losartan 12.5-50 mg Tab PO SCH (09:00)
[2020-11-28] MEDS ORDERED: Metoprolol Succinate 25 MG Tab.ER PO SCH (09:45)
[2020-11-28] MEDS ORDERED: Losartan 50 MG Tab PO SCH (09:47)
[2020-11-28] MEDS: Enoxaparin 40 MG/0.4 ML Syringe SUBCUT SCH (15:54)
--- NOTE | 2020-11-28 17:26 | PCM.DCSUM1 ---
Discharge Summary - Hospital Course Free Text/Narrative:: 50-year-old female admitted for postural dizziness and chest pain. She has a PMH of intermittent SVT, HTN and anxiety. Troponins were trended and were negative x3. No reported events on telemetry. CXR unremarkable. COVID-19 test negative. ECHO showed LVEF 55-60% and no evidence of pericardial effusion. Patient was given IV fluids. PT was consulted and patient ambulated without difficultly. Patient was started on metoprolol succinate 12.5 mg qd. Will continue losartan 12.5 mg qd and amlodipine 2.5 mg qd. Her HCTZ was discontinued. Patient reported feeling better on day of discharge and ambulated several times without difficulty or recurrence of symptoms. She was advised to follow-up with PCP and cardiology referral was also provided. - Discharge Data Discharge Date: 11/28/20 Discharge Disposition: Home, Self-Care 01 Condition: Stable - Referral to Home Health Primary Care Physician: Tanya Rao MD - Discharge Diagnosis/Problem(s) (1) Light-headedness SNOMED Code(s): 235720115 ICD Code: R42 - DIZZINESS AND GIDDINESS Status: Acute (2) Hypophosphatemia SNOMED Code(s): 9669105 ICD Code: E83.39 - OTHER DISORDERS OF PHOSPHORUS METABOLISM Status: Acute (3) HTN (hypertension) SNOMED Code(s): 17882301 ICD Code: I10 - ESSENTIAL (PRIMARY) HYPERTENSION Status: Acute (4) Anxiety SNOMED Code(s): 10186430 ICD Code: F41.9 - ANXIETY DISORDER, UNSPECIFIED Status: Acute (5) Chest pain SNOMED Code(s): 26840475 ICD Code: R07.9 - CHEST PAIN, UNSPECIFIED Status: Acute (6) Hypokalemia SNOMED Code(s): 84886937 ICD Code: E87.6 - HYPOKALEMIA Status: Acute - Patient Summary/Data Consults: Consultations 11/27/20 14:49 PT Evaluation and Treatment [CONS] Routine - Patient Instructions Diet: Regular Diet as Tolerated Activity: As Tolerated Notify Provider of: Fever, Increased Pain, Swelling and Redness, Drainage, Nausea and/or Vomiting - Discharge Plan *PRESCRIPTION DRUG MONITORING PROGRAM REVIEWED*: Not Applicable *COPY OF PRESCRIPTION DRUG MONITORING REPORT IN PATIENT KATY: Not Applicable Prescriptions/Med Rec: Losartan [Cozaar] 12.5 mg PO DAILY 30 Days #15 tab Metoprolol Succinate [Toprol XL] 12.5 mg PO DAILY 30 Days #15 tab.er Home Medications: Home Meds hydrOXYzine pamoate [Hydroxyzine Pamoate] 50 mg PO Q6H PRN 09/13/19 [History] Topiramate 25 mg PO DAILY 11/23/20 [History] amLODIPine [Norvasc] 2.5 mg PO DAILY 11/23/20 [History] Zolpidem [Ambien] 5 mg PO BEDTIME PRN 11/24/20 [History] Losartan [Cozaar] 12.5 mg PO DAILY 30 Days #15 tab 11/28/20 [Rx] Metoprolol Succinate [Toprol XL] 12.5 mg PO DAILY 30 Days #15 tab.er 11/28/20 [Rx] Oxygen Therapy Mode: Room Air Patient Handouts: Metoprolol extended-release tablets, Losartan tablets, Near- Syncope, [id number], Dizziness, [id number] Referrals: Savi Hou DO [Ordering Only Provider] - 12/05/20 10:00 am Jud Flores MD [Physician] - (We have sent a referral to cardiology, they will contact you to arrange an appointment. ) - Discharge Summary/Plan Comment DC Time >30 min.: No - Patient Data Vitals - Most Recent: Last Vital Signs Temp 36.6 C 11/28/20 10:08 Pulse 67 11/28/20 10:08 Resp 18 11/28/20 10:08 BP 123/83 11/28/20 10:22 Pulse Ox 100 11/28/20 10:08 Orthostatic Blood Pressure [ 132/90 Standing] Orthostatic Blood Pressure [ 123/79 Sitting] Orthostatic Blood Pressure [ 112/72 Supine] Weight - Most Recent: 81.284 kg I&O - Last 24 hours: Intake & Output 11/28/20 11/28/20 11/28/20 06:59 14:59 22:59 Intake Total 800 Output Total 1350 Balance -550 Lab Results - Last 24 hrs: Laboratory Results - last 24 hr 11/27/20 11/28/20 11/28/20 Range/Units 22:31 05:15 05:15 WBC 5.61 (4.0-11.0) K/uL RBC 3.85 L (4.30-5.90) M/uL Hgb 13.1 (12.0-16.0) g/dL Hct 38.5 (36.0-46.0) % MCV 100.0 H (80.0-98.0) fL MCH 34.0 H (27.0-32.0) pg MCHC 34.0 (31.0-37.0) g/dL RDW Std Deviation 49.1 (28.0-62.0) fl RDW Coeff of Sameer 13 (11.0-15.0) % Plt Count 267 (150-400) K/uL MPV 10.00 (7.40-12.00) fL Neut % (Auto) 53.3 (48.0-80.0) % Lymph % (Auto) 26.6 (16.0-40.0) % [place] % (Auto) 15.5 H (0.0-15.0) % Eos % (Auto) 3.7 (0.0-7.0) % Baso % (Auto) 0.9 (0.0-1.5) % Neut # (Auto) 3.0 (1.4-5.7) K/uL Lymph # (Auto) 1.5 (0.6-2.4) K/uL [place] # (Auto) 0.9 H (0.0-0.8) K/uL Eos # (Auto) 0.2 (0.0-0.7) K/uL Baso # (Auto) 0.1 (0.0-0.1) K/uL Nucleated RBC % 0.0 /100WBC Nucleated RBCs # 0 K/uL Sodium 138 (136-145) mmol/L Potassium 3.8 (3.5-5.1) mmol/L Chloride 103 (98-107) mmol/L Carbon Dioxide 23.1 (21.0-32.0) mmol/L BUN 9 (7.0-18.0) mg/dL Creatinine 0.9 (0.6-1.0) mg/dL Est Cr Clr Drug Dosing 58.49 mL/min Estimated GFR (MDRD) > 60.0 ml/min Glucose 79 (74-106) mg/dL Calcium 8.5 (8.5-10.1) mg/dL Phosphorus 3.5 (2.6-4.7) mg/dL Magnesium 2.1 (1.8-2.4) mg/dL Total Bilirubin 0.3 (0.2-1.0) mg/dL AST 29 (15-37) IU/L ALT 47 (14-63) IU/L Alkaline Phosphatase 59 (46-116) U/L Troponin I < 0.050 (0.000-0.056) ng/mL Total Protein 6.8 (6.4-8.2) g/dL Albumin 3.1 L (3.4-5.0) g/dL Globulin 3.7 (2.6-4.0) g/dL Albumin/Globulin Ratio 0.8 L (0.9-1.6) Med Orders - Current: Current Medications Amlodipine Besylate (Norvasc) 2.5 mg PO DAILY [facility] Last Admin: 11/28/20 09:59 Dose: 2.5 mg Documented by: Enoxaparin Sodium (Lovenox) 40 mg SUBCUT Q24H [facility] Last Admin: 11/28/20 15:54 Dose: 40 mg Documented by: Hydroxyzine Pamoate (Vistaril) 50 mg PO Q6H PRN PRN Reason: Anxiety Ibuprofen (Motrin) 400 mg PO Q6H PRN PRN Reason: Pain Losartan Potassium (Cozaar) 12.5 mg PO DAILY [facility] Last Admin: 11/28/20 10:22 Dose: 12.5 mg Documented by: Metoprolol Succinate (Toprol Xl) 12.5 mg PO DAILY [facility] Last Admin: 11/28/20 10:06 Dose: 12.5 mg Documented by: Zolpidem 5 Mg Own (Med) 0 each PO BEDTIME PRN PRN Reason: Sleep Last Admin: 11/27/20 21:46 Dose: 1 each Documented by: Ondansetron HCl (Zofran) 4 mg IVPUSH Q4H PRN PRN Reason: Nausea Last Admin: 11/28/20 05:58 Dose: 4 mg Documented by: Topiramate (Topamax) 25 mg PO BEDTIME [facility] Last Admin: 11/27/20 21:45 Dose: 25 mg Documented by: Discontinued Medications HCTZ/Losartan Potassium (Hyzaar 50-12.5 Mg) 2 tab PO DAILY [facility] Last Admin: 11/28/20 12:14 Dose: Not Given Documented by: Sodium Chloride (Normal Saline) 1,000 mls @ 999 mls/hr IV .Bolus ONE Stop: 11/27/20 12:41 Last Admin: 11/27/20 11:52 Dose: Not Given Documented by: Sodium Chloride (Normal Saline) 1,000 mls @ 1,000 mls/hr IV .Bolus ONE Stop: 11/27/20 12:40 Last Admin: 11/27/20 11:52 Dose: 1,000 mls/hr Documented by: Lactated Ringer's (Ringers, Lactated) 1,000 mls @ 125 mls/hr IV ASDIRECTED [facility] Stop: 11/27/20 23:14 Last Admin: 11/27/20 16:37 Dose: 125 mls/hr Documented by: Ibuprofen (Motrin) 800 mg PO ONETIME ONE Stop: 11/27/20 15:19 Last Admin: 11/27/20 15:25 Dose: 800 mg Documented by: Meclizine HCl (Antivert) 25 mg PO ONETIME ONE Stop: 11/27/20 14:11 Last Admin: 11/27/20 15:29 Dose: Not Given Documented by: Ondansetron HCl (Zofran) 4 mg IVPUSH ONETIME ONE Stop: 11/27/20 11:40 Last Admin: 11/27/20 11:51 Dose: 4 mg Documented by: Potassium Chloride (Klor-Con M20) 40 meq PO ONETIME ONE Stop: 11/27/20 13:01 Last Admin: 11/27/20 13:05 Dose: 40 meq Documented by: Sodium Phosphate (Neutra-Phos) 250 mg PO QID [facility] Stop: 11/28/20 12:01 Last Admin: 11/28/20 11:24 Dose: 250 mg Documented by:
[2020-11-28 19:16] VITALS: BP 122/78; PULSE 66
--- NOTE | 2020-11-30 16:34 | ECHO ---
EXAM DATE: 11/27/20 PATIENT'S AGE: 50 The ECHO report has been scanned into [facility] [employer] and can be seen in this patient's EMR (Electronic Medical Record) under the REPORTS section. The report has also been scanned into PACS. ANNA
== END 2020-11-28 18:47 | disposition home or self-care (01) ==
LOC: MW.ED 10:52 → MW.MS 14:12
PROVIDERS: ADMIT Internal Medicine; ATTEND Internal Medicine
DX: R42 Dizziness and giddiness (principal); R07.9 Chest pain, unspecified; E83.39 Other disorders of phosphorus metabolism; E87.6 Hypokalemia; I08.1 Rheumatic disorders of both mitral and tricuspid valves; I10 Essential (primary) hypertension; F41.9 Anxiety disorder, unspecified; I47.1 Supraventricular tachycardia; E66.9 Obesity, unspecified; Z79.899 Other long term (current) drug therapy; Z20.822 Contact with and (suspected) exposure to COVID-19; Z90.49 Acquired absence of other specified parts of digestive tract; Z98.890 Other specified postprocedural states; Z88.5 Allergy status to narcotic agent; Z88.8 Allergy status to other drugs, medicaments and biological substances; Z68.32 Body mass index [BMI] 32.0-32.9, adult
CPT/HCPCS: 0240U; 36415; 71046; 80053; 82550; 83735; 84100; 84443; 84484; 85025; 85652; 86140; 93005; 93306; 96372; 96374; 99285; A9270; J1650; J2405; J7030; J7120; 93010; 96376; 99283; G0378

== ENCOUNTER 2022-02-06 05:55 | Emergency (ER) | payer OTHER ==
[2022-02-06] MEDS ORDERED: Ondansetron 4 MG Tab.DIS PO ONE (06:10)
[2022-02-06 06:13] VITALS: BP 129/87; PULSE 70
== END 2022-02-06 06:25 | disposition home or self-care (01) ==
LOC: MW.ED 05:55
DX: N30.01 Acute cystitis with hematuria (principal); I10 Essential (primary) hypertension; E66.9 Obesity, unspecified; Z68.29 Body mass index [BMI] 29.0-29.9, adult; Z91.040 Latex allergy status; Z88.8 Allergy status to other drugs, medicaments and biological substances; Z79.899 Other long term (current) drug therapy
CPT/HCPCS: 81001; 99283; A9270

== ENCOUNTER 2022-02-08 13:28 | Emergency (ER) | payer OTHER ==
[2022-02-08 15:18] LABS: CARBON DIOXIDE,CO2 18.6 mmol/L (21.0-32.0); POTASSIUM,K 4.7 mmol/L (3.5-5.1)
[2022-02-08] MEDS ORDERED: Sodium Chloride 0.9% 1,000 ML IV ONE (15:50)
[2022-02-08] MEDS ORDERED: Ondansetron 4 MG/2 ML SDV IVPUSH ONE (15:50)
[2022-02-08] MEDS ORDERED: HYDROmorphone 1 MG/ML Syringe IVPUSH ONE ×2 (16:04→17:40)
[2022-02-08] MEDS ORDERED: Promethazine 25 MG/ML SDV IM ONE (17:35)
[2022-02-08] MEDS ORDERED: Alum Hydro/Mag Hydro/Simeth XS 15 ML, Lidocaine 2% 5 ML PO ONE ×2 (17:59)
[2022-02-08 19:18] VITALS: BP 118/78; PULSE 74
== END 2022-02-08 18:45 | disposition home or self-care (01) ==
LOC: MW.ED 13:28
DX: R11.2 Nausea with vomiting, unspecified (principal); I10 Essential (primary) hypertension; E66.9 Obesity, unspecified; Z68.28 Body mass index [BMI] 28.0-28.9, adult; Z86.16 Personal history of COVID-19; Z90.49 Acquired absence of other specified parts of digestive tract; Z79.899 Other long term (current) drug therapy; Z88.6 Allergy status to analgesic agent; Z91.040 Latex allergy status; Z88.1 Allergy status to other antibiotic agents
CPT/HCPCS: 36415; 74176; 80053; 81001; 83690; 83735; 85025; 96372; 96374; 96375; 96376; 99284; A9270; J1170; J2405; J2550; J7030

== ENCOUNTER 2023-08-22 06:50 | Day surgery (SDC) | payer OTHER ==
[2023-08-22] MEDS: Lactated Ringers 1,000 ML IV SCH ×2 (07:15→07:28)
[2023-08-22] MEDS ORDERED: Scopolamine 1.5 MG Transdermal Patch ONE (07:17)
[2023-08-22] MEDS ORDERED: Scopolamine 1.5 MG Transdermal Patch TOP ONE (07:22)
[2023-08-22] MEDS ORDERED: Metoclopramide 10 MG/2 ML SDV IVPUSH PRN (07:23)
[2023-08-22] MEDS ORDERED: Albuterol 0.083% 2.5 MG/3 ML Neb Soln NEB PRN (07:23)
[2023-08-22] MEDS ORDERED: HYDROmorphone 1 MG/ML Syringe IVPUSH PRN (07:23)
[2023-08-22] MEDS ORDERED: Naloxone 0.4 MG/ML SDV IVPUSH PRN (07:23)
[2023-08-22] MEDS ORDERED: Ondansetron 4 MG/2 ML SDV IVPUSH PRN (07:23)
[2023-08-22] MEDS ORDERED: droPERidol 5 MG/2 ML SDV IVPUSH PRN (07:23)
[2023-08-22] MEDS ORDERED: Morphine 2 MG/ML SYRINGE IVPUSH PRN (07:23)
[2023-08-22] MEDS ORDERED: fentaNYL 50 MCG/ML SDV IVPUSH PRN (07:23)
[2023-08-22] MEDS ORDERED: fentaNYL 250 MCG/5 ML SDV ONE (07:27)
[2023-08-22] MEDS ORDERED: Propofol 200 MG/20 ML SDV ONE ×2 (07:27→10:38)
[2023-08-22] MEDS ORDERED: Lidocaine 1% 50 ML MDV ONE (07:32)
[2023-08-22] MEDS ORDERED: Bupivacaine 0.5% 30 ML SDV ONE (07:32)
[2023-08-22] MEDS ORDERED: Dexmedetomidine 200 MCG/2 ML SDV ONE (07:35)
[2023-08-22] MEDS ORDERED: Famotidine 20 MG/2 ML SDV ONE (07:55)
[2023-08-22] MEDS ORDERED: ceFAZolin 2 GM in Sodium Chloride 0.9% 50 ML IV ONE (08:00)
[2023-08-22] MEDS ORDERED: ceFAZolin 2 GM Vial ONE (08:10)
[2023-08-22] MEDS ORDERED: Magnesium Sulfate (4.06 MEQ/ML) 5 GM/10 ML SDV ONE (08:32)
[2023-08-22] MEDS ORDERED: ePHEDrine 50 MG/ML SDV ONE (08:33)
[2023-08-22] MEDS ORDERED: Dexamethasone 4 MG/ML 5 ML MDV ONE (08:50)
[2023-08-22] MEDS ORDERED: Ondansetron 4 MG/2 ML SDV ONE (08:50)
[2023-08-22] MEDS ORDERED: Phenylephrine HCl 0.5 MG/5 ML AMP ONE (09:22)
[2023-08-22] MEDS ORDERED: HYDROmorphone 2 MG/ML Syringe ONE (10:18)
[2023-08-22] MEDS ORDERED: Ketorolac 30 MG/ML SDV ONE (10:28)
[2023-08-22] MEDS ORDERED: diphenhydrAMINE 50 MG/ML SDV ONE (11:12)
[2023-08-22 12:26] VITALS: BP 108/64; PULSE 78
== END 2023-08-22 13:05 | disposition home or self-care (01) ==
LOC: MW.SDS 06:50
PROVIDERS: ATTEND Podiatrist Foot & Ankle Surgery
DX: M21.171 Varus deformity, not elsewhere classified, right ankle (principal); M21.071 Valgus deformity, not elsewhere classified, right ankle; I10 Essential (primary) hypertension; F32.A Depression, unspecified; F41.9 Anxiety disorder, unspecified; E66.9 Obesity, unspecified; Z68.33 Body mass index [BMI] 33.0-33.9, adult; Z79.899 Other long term (current) drug therapy; Z88.5 Allergy status to narcotic agent; Z88.8 Allergy status to other drugs, medicaments and biological substances
CPT/HCPCS: 28750; A9270; J0690; J1100; J1170; J1200; J1885; J2371; J2405; J2704; J3010; J3475; J3490; J7120; C1713; J2001

== ENCOUNTER 2024-01-27 15:47 | Emergency (ER) | payer OTHER ==
[2024-01-27 17:12] VITALS: BP 135/92
[2024-01-27] MEDS: Orphenadrine 60 MG/2 ML Inj IM ONE (17:34)
[2024-01-27] MEDS: Ketorolac 60 MG/2 ML SDV IM ONE (17:35)
[2024-01-28 00:38] VITALS: PULSE 82
== END 2024-01-27 19:26 | disposition home or self-care (01) ==
LOC: MW.ED 15:47
DX: M54.50 Low back pain, unspecified (principal); I10 Essential (primary) hypertension; Z75.8 Other problems related to medical facilities and other health care; Z88.5 Allergy status to narcotic agent; Z91.040 Latex allergy status; Z88.8 Allergy status to other drugs, medicaments and biological substances; Z79.899 Other long term (current) drug therapy
CPT/HCPCS: 72131; 96372; 99283; J1885; J2360

== ENCOUNTER 2024-03-10 09:51 | Emergency (ER) | payer OTHER ==
[2024-03-10] MEDS ORDERED: Sodium Chloride 0.9% 20 ML SDV IV PRN (09:57)
[2024-03-10] MEDS: Iopamidol 755 MG/ML 500 ML Multipack Bottle IVPUSH STA (10:06)
[2024-03-10 10:26] LABS: BASOPHILS ABSOLUTE AUTO 0.03 K/uL (0.00-0.20); BASOPHILS PERCENT AUTO 0.8 % (0.0-1.0); EOSINOPHILS ABSOLUTE AUTO 0.06 K/uL (0.00-0.45); EOSINOPHILS PERCENT AUTO 1.7 % (0.0-6.0); HEMATOCRIT 38.4 % (37.0-47.0); HEMOGLOBIN 13.1 g/dL (12.0-16.0); IMMATURE GRAN ABSOLUTE AUTO 0.01 K/uL (0.00-0.05); IMMATURE GRAN PERCENT AUTO 0.3 % (0.0-0.4); LYMPHOCYTES ABSOLUTE AUTO 0.77 K/uL (1.00-4.80); LYMPHOCYTES PERCENT AUTO 21.2 % (24.0-44.0); MEAN CORPUSCULAR HEMOGLOBIN 34.4 pg (28.0-32.0); MEAN CORPUSCULAR HGB CONC 34.1 g/dL (32.0-36.0); MEAN CORPUSCULAR VOLUME 100.8 fL (83.0-99.0); MEAN PLATELET VOLUME 9.7 fL (9.4-12.3); MONOCYTES ABSOLUTE AUTO 0.49 K/uL (0.00-0.80); MONOCYTES PERCENT AUTO 13.5 % (0.0-8.0); NEUTROPHILS ABSOLUTE AUTO 2.27 K/uL (1.80-7.70); NEUTROPHILS PERCENT AUTO 62.5 % (41.0-71.0); PLATELET COUNT,PLT 241 K/uL (150-400); RED BLOOD CELL COUNT 3.81 M/uL (4.10-5.30); WHITE BLOOD CELL COUNT,WBC 3.63 K/uL (3.9-11.3)
[2024-03-10 10:41] LABS: PTT,PARTIAL THROMBOPLSTIN TIME 28.6 SEC (23.9-30.7)
[2024-03-10 10:52] LABS: A/G RATIO 0.7 (0.9-1.6); ALBUMIN 2.5 g/dL (3.4-5.0); BILIRUBIN TOTAL 0.2 mg/dL (0.2-1.0); CALCIUM 8.5 mg/dL (8.5-10.1); CARBON DIOXIDE,CO2 29.4 mmol/L (21.0-32.0); CREATININE 0.9 mg/dL (0.6-1.0); EST CRCL DRUG DOSING (CG) 61.71 mL/min; POTASSIUM,K 3.5 mmol/L (3.5-5.1); PROTEIN TOTAL,TP 6.3 g/dL (6.4-8.2)
[2024-03-10] MEDS: Sodium Chloride 0.9% 1,000 ML IV ONE (10:58)
[2024-03-10] MEDS: Sodium Chloride 0.9% 10 ML Syringe FLUSH PRN (10:59)
[2024-03-10] MEDS: Sodium Chloride 0.9% 2.5 ML Syringe FLUSH PRN (10:59)
[2024-03-10 12:38] VITALS: BP 120/96; PULSE 94
== END 2024-03-10 12:35 ==
LOC: MW.ED 09:51
DX: I63.412 Cerebral infarction due to embolism of left middle cerebral artery (principal); I77.71 Dissection of carotid artery; I10 Essential (primary) hypertension; K21.9 Gastro-esophageal reflux disease without esophagitis; E66.9 Obesity, unspecified; I25.10 Atherosclerotic heart disease of native coronary artery without angina pectoris; Z79.899 Other long term (current) drug therapy; Z88.5 Allergy status to narcotic agent; Z88.8 Allergy status to other drugs, medicaments and biological substances; Z91.040 Latex allergy status; Z75.8 Other problems related to medical facilities and other health care; Z68.31 Body mass index [BMI] 31.0-31.9, adult
CPT/HCPCS: 36415; 70450; 70496; 70498; 80053; 82947; 85025; 85610; 85730; 93005; 96360; 96361; 99285; J3490; J7030; Q9967; 93010

== ENCOUNTER 2024-06-10 17:00 | Observation (INO) | payer OTHER ==
[2024-06-10 17:16] LABS: BASOPHILS ABSOLUTE AUTO 0.07 K/uL (0.00-0.20); EOSINOPHILS ABSOLUTE AUTO 0.23 K/uL (0.00-0.45); EOSINOPHILS PERCENT AUTO 3.4 % (0.0-6.0); HEMATOCRIT 41.9 % (37.0-47.0); HEMOGLOBIN 14.7 g/dL (12.0-16.0); IMMATURE GRAN ABSOLUTE AUTO 0.01 K/uL (0.00-0.05); IMMATURE GRAN PERCENT AUTO 0.1 % (0.0-0.4); LYMPHOCYTES ABSOLUTE AUTO 1.59 K/uL (1.00-4.80); LYMPHOCYTES PERCENT AUTO 23.7 % (24.0-44.0); MEAN CORPUSCULAR HEMOGLOBIN 34.8 pg (28.0-32.0); MEAN CORPUSCULAR HGB CONC 35.1 g/dL (32.0-36.0); MEAN CORPUSCULAR VOLUME 99.3 fL (83.0-99.0); MEAN PLATELET VOLUME 9.7 fL (9.4-12.3); MONOCYTES ABSOLUTE AUTO 0.38 K/uL (0.00-0.80); MONOCYTES PERCENT AUTO 5.7 % (0.0-8.0); NEUTROPHILS ABSOLUTE AUTO 4.43 K/uL (1.80-7.70); NEUTROPHILS PERCENT AUTO 66.1 % (41.0-71.0); PLATELET COUNT,PLT 284 K/uL (150-400); RED BLOOD CELL COUNT 4.22 M/uL (4.10-5.30); WHITE BLOOD CELL COUNT,WBC 6.71 K/uL (3.9-11.3)
[2024-06-10] MEDS: Sodium Chloride 0.9% 10 ML Syringe FLUSH PRN (17:27)
[2024-06-10] MEDS: fentaNYL 50 MCG/ML SDV IVPUSH ONE (17:27)
[2024-06-10] MEDS: LORazepam 2 MG/ML SDV IVPUSH ONE ×2 (17:27→19:13)
[2024-06-10] MEDS: Sodium Chloride 0.9% 2.5 ML Syringe FLUSH PRN (17:27)
[2024-06-10 17:30] LABS: INR 0.98 (0.86-1.11); PTT,PARTIAL THROMBOPLSTIN TIME 29.4 SEC (23.9-30.7)
[2024-06-10] MEDS: Ondansetron 4 MG/2 ML SDV IVPUSH ONE (17:33)
[2024-06-10 17:58] LABS: ALBUMIN 3.9 g/dL (3.4-5.0); BILIRUBIN TOTAL 0.4 mg/dL (0.2-1.0); CALCIUM 9.1 mg/dL (8.5-10.1); CARBON DIOXIDE,CO2 24.9 mmol/L (21.0-32.0); EST CRCL DRUG DOSING (CG) 50.27 mL/min; MAGNESIUM 1.5 mg/dL (1.8-2.4); POTASSIUM,K 3.6 mmol/L (3.5-5.1); TSH ULTRASENSITIVE 1.8 uIU/mL (0.36-3.74)
[2024-06-10] MEDS: Iopamidol 755 MG/ML 500 ML Multipack Bottle IVPUSH STA (18:38)
[2024-06-10] MEDS: Magnesium Oxide 400 MG Tab PO ONE (19:12)
[2024-06-10] MEDS: Morphine 4 MG/ML Syringe IVPUSH ONE (19:13)
[2024-06-10] MEDS: atorvaSTATin 40 MG Tab PO SCH (23:27)
[2024-06-10] MEDS: LORazepam 1 MG Tab PO SCH (23:28)
[2024-06-10] MEDS: Magnesium Sulfate/Water 2 GM in Premix Bag 1 BAG IV ONE (23:29)
[2024-06-11] MEDS: Ticagrelor 90 MG Tab PO SCH ×2 (01:32→09:52)
[2024-06-11 02:10] LABS: BASOPHILS ABSOLUTE AUTO 0.06 K/uL (0.00-0.20); BASOPHILS PERCENT AUTO 0.8 % (0.0-1.0); EOSINOPHILS ABSOLUTE AUTO 0.36 K/uL (0.00-0.45); EOSINOPHILS PERCENT AUTO 4.8 % (0.0-6.0); HEMATOCRIT 39.5 % (37.0-47.0); HEMOGLOBIN 13.5 g/dL (12.0-16.0); IMMATURE GRAN ABSOLUTE AUTO 0.01 K/uL (0.00-0.05); IMMATURE GRAN PERCENT AUTO 0.1 % (0.0-0.4); LYMPHOCYTES ABSOLUTE AUTO 2.49 K/uL (1.00-4.80); LYMPHOCYTES PERCENT AUTO 33.1 % (24.0-44.0); MEAN CORPUSCULAR HEMOGLOBIN 34.1 pg (28.0-32.0); MEAN CORPUSCULAR HGB CONC 34.2 g/dL (32.0-36.0); MEAN CORPUSCULAR VOLUME 99.7 fL (83.0-99.0); MEAN PLATELET VOLUME 9.8 fL (9.4-12.3); MONOCYTES ABSOLUTE AUTO 0.57 K/uL (0.00-0.80); MONOCYTES PERCENT AUTO 7.6 % (0.0-8.0); NEUTROPHILS ABSOLUTE AUTO 4.03 K/uL (1.80-7.70); NEUTROPHILS PERCENT AUTO 53.6 % (41.0-71.0); PLATELET COUNT,PLT 241 K/uL (150-400); RED BLOOD CELL COUNT 3.96 M/uL (4.10-5.30); WHITE BLOOD CELL COUNT,WBC 7.52 K/uL (3.9-11.3)
[2024-06-11 02:27] LABS: CARBON DIOXIDE,CO2 29.7 mmol/L (21.0-32.0); EST CRCL DRUG DOSING (CG) 50.27 mL/min; POTASSIUM,K 4.1 mmol/L (3.5-5.1)
[2024-06-11] MEDS: Calcium Carbonate 500 MG Tab.Chew PO PRN (02:32)
[2024-06-11] MEDS ORDERED: Acetaminophen 325 MG Tab PO PRN (05:03)
[2024-06-11] MEDS: Morphine 2 MG/ML SYRINGE IVPUSH PRN (05:10)
[2024-06-11] MEDS: Gadobenate Dimeglumine 529 MG/ML 20 ML SDV IVPUSH ONE (08:09)
[2024-06-11] MEDS: Metoprolol Tartrate 25 MG Tab PO SCH (09:09)
[2024-06-11] MEDS: Aspirin 81 MG Tab.Chew PO SCH (10:46)
[2024-06-11 12:41] VITALS: BP 115/74; PULSE 61
== END 2024-06-11 13:30 ==
LOC: MW.ED 17:00 → UNDOADMOB 20:33 → MW.MS 20:33
PROVIDERS: ADMIT Internal Medicine; ATTEND Internal Medicine
DX: M54.2 Cervicalgia (principal); I10 Essential (primary) hypertension; I25.10 Atherosclerotic heart disease of native coronary artery without angina pectoris; K21.9 Gastro-esophageal reflux disease without esophagitis; F32.A Depression, unspecified; F41.9 Anxiety disorder, unspecified; Z79.899 Other long term (current) drug therapy; Z88.5 Allergy status to narcotic agent
CPT/HCPCS: 36415; 70450; 70496; 70498; 70553; 71045; 80048; 80053; 83735; 83880; 84443; 84484; 85025; 85610; 85730; 93005; 96365; 96366; 96375; 96376; 99285; A9270; A9577; G0378; J2060; J2270; J2405; J3010; J3475; J3490; Q9967; 93010; 96374; 99222